=== PATIENT | female | born 1960 | race Caucasian/White ===

== ENCOUNTER → 2020-08-01 | Outpatient (CLI) | payer BC, SELFPAY ==
[2020-08-01 11:35] VITALS: BMI 28.1
== END | disposition home or self-care (01) ==
LOC: LABSPEC 15:31
PROVIDERS: PCP Family Medicine; Referring Provider Physician Assistant; Visit Provider Physician Assistant
DX: R05 Cough (principal); R53.83 Other fatigue; R51.9 Headache, unspecified; R09.81 Nasal congestion; R11.0 Nausea
CPT/HCPCS: 87635; U0003

== ENCOUNTER 2021-03-02 12:14 | Emergency (ER) | payer OTHER, SELFPAY ==
[2020-08-01 11:35] VITALS: BMI 28.1
[2021-03-02 12:15] VITALS: BP 158/96; PULSE 89; RESP 16; TEMP 35.8; O2SAT 98; BMI 26.6
--- NOTE | 2021-03-02 12:28 | RAD_ITS ---
HISTORY: injury. TECHNIQUE: XR Elbow Min 3 Views. Number of images including paperwork: 3. COMPARISON: None. FINDINGS: OSSEOUS STRUCTURES: No acute fracture. Mild osteopenia. JOINT SPACES: Maintained. No dislocation. RAD/Elbow min 3 Views IMPRESSION: No acute fracture or dislocation identified in the right elbow. at 1521 Reported and signed by: Nova Lennon MD Electronically Signed: Nova Lennon MD at 15:20 EDT Tel , Service support ,
--- NOTE | 2021-03-02 12:28 | RAD_ITS ---
HISTORY: injury. TECHNIQUE: XR Foot Min 3 Views. # of images incl. paperwork: 3. COMPARISON: None. FINDINGS: BONES: No acute fracture identified. Generalized osteopenia. JOINTS: No dislocation. Degenerative changes. RAD/Foot min 3 Views IMPRESSION: No acute fracture or dislocation identified in the left foot. at 1333 Reported and signed by: Nova Lennon MD Electronically Signed: Nova Lennon MD at 13:32 EDT Tel , Service support ,
--- NOTE | 2021-03-02 12:29 | EDS_ITS ---
HPI History of Present Illness Chief Complaint: Lower Extremity Injury Informant: patient Narrative Narrative: Patient states that last night she tripped over a raccoon trap and did a somersault hurting her right elbow and left foot. She states the elbow feels bruised and the foot is unable to bear weight. She used crutches to come here. She also notes some abrasions to the right knee. She did not hit her head. No neck or back complaints. [facility] Medical History (Updated 03/02/21 @ 13:[address] Elver Dobbins DO) Eye abnormalities Home Medications prednisolone acetate 1 drp OPHTHALMIC (EYE) 4X/DAY 11/08/13 [History Last Taken Unknown] Allergy/AdvReac Type Severity Reaction Status Date / Time nalidixic acid [From NegGram] Allergy Vomiting Verified 03/02/21 12:15 Social History (Updated 03/02/21 @ 12:[address] Elver Dobbins DO) Smoking Status: Current every day smoker tobacco type: cigarettes substance use type: does not use ROS ROS ED Constitutional Constitutional ED: Denies chills or weight loss Eyes Eyes: Denies change in vision or diplopia ENT ENT ED: Denies ear pain, rhinorrhea or sore throat Cardiovascular Cardiovascular: Denies chest pain, orthopnea, palpitations or racing heartbeat Respiratory/Chest Respiratory/Chest: Denies cough, dyspnea or orthopnea Gastrointestinal Gastrointestinal: Denies abdominal pain, diarrhea, nausea or vomiting Genitourinary Genitourinary ED: Denies dysuria, hematuria or urinary frequency Musculoskeletal Musculoskeletal: Reports other Details: See history of present illness ; Denies arthralgias or myalgias Integumentary Reports Abrasions; Denies abscess or rash Neurologic Neurologic: Denies headache(s) or weakness Psychiatric Psychiatric: Denies anxiety, depression, suicidal ideation or suicidal thoughts Endocrine Endocrinology: Denies polydipsia, polyphagia or polyuria Allergic/Immunologic Allergic/Immunologic ED: Denies mouth swelling, tongue swelling or urticaria EXAM Physical Exam Const Vital Signs: 03/02/21 12:15 Temperature 96.4 F L Temperature Source Temporal Pulse Rate 89 Respiratory Rate 16 Blood Pressure 158/96 H Blood Pressure Mean 116 Pulse Ox 98 Oxygen Delivery Method Room Air Positive well nourished and well developed General Appearance ED: well developed HEENT Reports normocephalic, head/scalp atraumatic and moist mucous membranes Eyes PERRL and EOMs intact bilaterally Neck no lymphadenopathy, supple and no JVD Resp normal respiratory effort and clear to auscultation bilaterally Cardio regular rate, regular rhythm and no murmurs GI normal to inspection, nondistended, normoactive bowel sounds and non-tender Palpation: soft Back/Spine no CVA tenderness and normal ROM Extremity Extremity Narrative: Patient has full range of motion of the left elbow. No tenderness to palpation of the radial head. Left foot shows some mild swelling over the dorsum of the midfoot. General Extremety ED: Negative for edema General Extremity: Negative for edema Neuro oriented x3 and CN's II-XII intact bilaterally Sensorium / Orientation: alert Motor Exam: strength 5/5 throughout Psych mental status grossly normal Mood & Affect: Negative for depressed or tearful Skin no rashes or lesions noted Skin Narrative: Superficial abrasions to the right knee MDM MDM MDM Narrative Medical decision making narrative: My interpretation of the plain films of the right elbow and left foot is no acute fracture. Radiology concurs. Patient will be treated with conservative care at home. Tylenol Motrin and ice. Crutches as needed. Radiography Diagnostic Testing: Radiology Impression Foot X-Ray 03/02/21 12:28 IMPRESSION: No acute fracture or dislocation identified in the left foot. at 1333 Reported and signed by: Nova Lennon MD Electronically Signed: Nova Lennon MD at 13:32 EDT Tel , Service support , Discharge Plan Triage Chief Complaint: Lower Extremity Injury Other Complaint: Upper Extremity Injury ED Provider: Elver Dobbins Dx/Rx/DC Orders Clinical Impression: Contusion of elbow, right, Contusion of foot, left, Abrasion of knee, right Instructions: ED Foot Contusion, ED Contusion, Elbow Prescriptions: No Action prednisolone acetate 1 DROP drops,suspension 1 drp ophthalmic (eye) 4X/DAY RF: 0 Primary Care Provider: Alonso Aponte III Referrals: Alonso Aponte III, MD [Primary Care Provider] - 10-14 Days if not better Disposition Disposition: Home, self care
== END 2021-03-02 15:12 | disposition home or self-care (01) ==
PROVIDERS: Emergency Provider Emergency Medicine; PCP Family Medicine
DX: S50.01XA Contusion of right elbow, initial encounter (principal); S80.211A Abrasion, right knee, initial encounter; S90.31XA Contusion of right foot, initial encounter; S90.32XA Contusion of left foot, initial encounter; W18.09XA Striking against other object with subsequent fall, initial encounter; Y93.9 Activity, unspecified; Y92.9 Unspecified place or not applicable; F17.210 Nicotine dependence, cigarettes, uncomplicated
CPT/HCPCS: 73080; 73630; 99283

== ENCOUNTER 2021-12-17 18:39 | Emergency (ER) | payer BC, SELFPAY ==
[2021-12-17 18:40] VITALS: BP 128/95; PULSE 86; PULSE 91; RESP 23; TEMP 36.7; O2SAT 96; BMI 29.7
--- NOTE | 2021-12-17 18:49 | EKG12_ITS ---
Test Reason : SVT Blood Pressure : / mmHG Vent. Rate : 090 BPM Atrial Rate : 090 BPM P-R Int : 170 ms QRS Dur : 086 ms QT Int : 384 ms P-R-T Axes : 042 018 024 degrees QTc Int : 469 ms Normal sinus rhythm Normal ECG Confirmed by PRO BURTON, TONNY ([id number]), brands editor RODRÍGUEZ ROMO ([id number]) on 12/24/2021 10:25:42 AM Referred By: DOC Confirmed By:TONNY MAST MD
--- NOTE | 2021-12-17 18:51 | ED.VIS.CHEST ---
HPI History of Present Illness Chief Complaint: Chest Pain Narrative Narrative: A 61-year-old female presenting with palpitations. Apparently she was having palpitations for about an hour hour and a half prior to arrival. She called EMS because she was not getting better. EMS stated that they had a rhythm that was SVT. The patient appeared to be unstable and was shocked at 50 J and then 100 J. They did achieve a sinus rhythm. Patient feeling improved currently. She denies any chest pain or shortness of breath. She is never had SVT in the past. She states she does not have any medical problems that she knows. No cardiac history. No history of DVT/PE and no risk factors. [facility] Medical History Eye abnormalities Glaucoma History of palpitations Home Medications prednisolone acetate 1 drp OPHTHALMIC (EYE) 4X/DAY 11/08/13 [History Last Taken Unknown] metoprolol tartrate 25 mg PO DAILY #60 tab 12/17/21 [Rx Last Taken Unknown] Allergy/AdvReac Type Severity Reaction Status Date / Time nalidixic acid [From NegGram] Allergy Vomiting Verified 12/17/21 18:49 Social History Smoking Status: Current every day smoker tobacco type: cigarettes substance use type: does not use ROS ROS ED Review of Systems ROS Unobtainable: Denies due to encephalopathy Constitutional Constitutional ED: Denies fever(s) or subjective Eyes Eyes: Denies none, blurry vision or change in vision ENT ENT ED: Denies rhinorrhea Cardiovascular Cardiovascular: Reports palpitations and racing heartbeat Respiratory/Chest Respiratory/Chest: Denies cough or dyspnea Gastrointestinal Gastrointestinal: Denies abdominal pain, nausea or vomiting Genitourinary Genitourinary ED: Denies dysuria or hematuria Musculoskeletal Musculoskeletal: Denies myalgias Integumentary Denies abscess or rash Neurologic Neurologic: Denies headache(s) or weakness Psychiatric Psychiatric: Denies anxiety or depression EXAM Physical Exam Const Vital Signs: 12/17/21 18:40 12/17/21 18:59 12/17/21 19:50 Temperature 98.1 F Temperature Source Temporal Pulse Rate 86 84 Respiratory Rate 23 H 13 Respiratory Effort Normal Non-Labored Respiratory Pattern Normal Blood Pressure 128/95 H 116/85 H Blood Pressure Mean 106 95 Pulse Ox 96 98 Oxygen Delivery Method Room Air Room Air Positive well nourished General Appearance ED: NAD; Negative for pallor HEENT Reports normocephalic, head/scalp atraumatic and moist mucous membranes Eyes PERRL and EOMs intact bilaterally Neck no lymphadenopathy and supple Chest Wall inspection of chest normal and palpation of chest normal Resp normal respiratory effort and clear to auscultation bilaterally Auscultation: Negative for rales, rhonchi or wheezes Cardio regular rate and regular rhythm GI normal to inspection, nondistended, normoactive bowel sounds and non-distended Auscultation: normoactive bowel sounds Palpation: soft Narrative: Deferred Extremity normal to inspection General Extremety ED: Negative for edema or tenderness General Extremity: Negative for edema Neuro oriented x3 and CN's II-XII intact bilaterally Sensorium / Orientation: alert Motor Exam: strength 5/5 throughout Psych mental status grossly normal Attitude: No agitated Skin no rashes or lesions noted and no wounds General Skin Exam: Negative for jaundice or pallor MDM MDM MDM Narrative Medical decision making narrative: Patient presenting with SVT. EMS does report that she appeared to be unstable and was losing consciousness that it terminated which shocked her and did shock her in the rhythm. She currently feels improved. She denies any sort of chest pain or shortness of breath. She only experienced palpitations. No cardiac history or history of DVT/PE. Blood work was obtained and her CBC and BMP are unremarkable. D-dimer is negative at 0.35. High-sensitivity troponin was elevated at 320. Chest x-ray on my interpretation shows no acute cardiopulmonary process and the radiologist agree. EKG obtained in the ER shows a normal sinus rhythm with a ventricular 90 bpm without sign of ischemic change. I spoke with Dr. Fairbanks regarding elevated troponin and since the patient was not having any chest pain and did get shocked which would possibly elevate her heart enzymes he did not think she needed any further work-up. He recommended putting her on metoprolol tartrate 25 mg p.o. twice daily and following up with her primary care physician. This was discussed with the patient and she was amenable to this. She states she feels very well. Patient counseled to monitor her blood pressure and heart rate. Patient given return precautions. Impression: 1. palpitations 2. Near syncope 3. Status post defibrillation 4. Elevated troponin Lab Data Attestation: I reviewed the patient's lab results. Labs: Laboratory Results - last 24 hr 12/17/21 12/17/21 12/17/21 18:48 18:48 18:48 WBC 9.3 RBC 4.64 Hgb 14.9 Hct 44.2 MCV 95.3 MCH 32.1 H MCHC 33.7 RDW Std Deviation 42.2 RDW Coeff of Elizabeth 12.1 Plt Count 192 MPV 9.6 Immature Gran % (Auto) 0.500 Neut % (Auto) 72.6 H Lymph % (Auto) 15.8 L M[place] % (Auto) 9.8 Eos % (Auto) 1.0 Baso % (Auto) 0.3 Absolute Neuts (auto) 6.7 Absolute Lymphs (auto) 1.46 Nucleated RBC % 0 D-Dimer Quant (PE/DVT) 0.35 Sodium 142 Potassium 3.7 Chloride 115 H Carbon Dioxide 23.0 Anion Gap 4 L BUN 18 Creatinine 0.97 Estim Creat Clear Calc 54.11 Est GFR (MDRD) Af Amer 75 Est GFR (MDRD) Non-Af 62 BUN/Creatinine Ratio 18.5 Glucose 102 Calcium 8.7 Troponin I High Sens 320 H* Radiography Diagnostic Testing: Clinical Impression(s) from Imaging Studies Chest X-Ray 12/17/21 19:02 IMPRESSION: No radiographic evidence of acute cardiopulmonary disease. at 1921 Reported and signed by: Dada Thompson MD Electronically Signed: Dada Thompson MD at 19:19 EDT , Discharge Plan Triage Chief Complaint: Chest Pain ED Provider: Vikram Glass Dx/Rx/DC Orders Instructions: ED Understanding Supraventricular Tachycardia (SVT) Prescriptions: New metoprolol tartrate 25 mg tablet 25 mg PO DAILY Qty: 60 RF: 0 No Action prednisolone acetate 1 DROP drops,suspension 1 drp ophthalmic (eye) 4X/DAY RF: 0 Primary Care Provider: Care Physician,No Primary Referrals: Care Physician,No Primary [Primary Care Provider] - Disposition Disposition: Home, Self Care
--- NOTE | 2021-12-17 19:02 | RAD_ITS ---
EXAM: XR CHEST, 1 VIEW : 1960 CLINICAL INDICATION: chest pain TECHNIQUE: Frontal view of the chest. This report was created using [employer] report generation technology. COMPARISON: 11/08/2013 FINDINGS: LUNGS AND PLEURAL SPACES: Unremarkable. No consolidation or edema. No pneumothorax. No effusion. HEART: Unremarkable. Cardiac silhouette not enlarged. MEDIASTINUM: Central airways and mediastinal contour are unremarkable. BONES/JOINTS: Unremarkable. SOFT TISSUES: Unremarkable. RAD/Chest 1 View (Portable) IMPRESSION: No radiographic evidence of acute cardiopulmonary disease. at 1921 Reported and signed by: Dada Thompson MD Electronically Signed: Dada Thompson MD at 19:19 EDT ,
[2021-12-17 19:17] LABS: Absolute Lymphocyte Count 1.46 X10^3/uL (0.83-4.51); Absolute Neutrophil Count 6.7 X10^3/uL (2.0-7.7); Basophil# 0.03 X10^3/uL; Basophil% 0.3 % (0-1); Eosinophil# 0.09 X10^3/uL; Hematocrit 44.2 % (37-47); Hemoglobin 14.9 g/dL (12.0-15.0); Lymphocyte # 1.46 X10^3/ul (0.83-4.51); Lymphocyte % 15.8 % (19-41); Mean Corp Hgb Conc 33.7 g/dL (32-36); Mean Corpuscular Hgb 32.1 pg (27.0-32.0); Mean Corpuscular Volume 95.3 fL (81-99); Mean Platelet Vol. 9.6 fl (6.2-12.0); Monocyte# 0.91 X10^3/uL; Monocyte% 9.8 % (0-10); NRBC Flagged by Analyzer 0 % (0-5); Neutrophil # 6.71 X10^3/uL (2.7-7.7); Neutrophil % 72.6 % (47-70); Platelet Count 192 K/mm3 (150-450); RBC Distribution Width CV 12.1 % (11.6-14.6); RBC Distribution Width SD 42.2 fl (35.1-43.9); Red Blood Count 4.64 M/mm3 (4.2-5.4); White Blood Count 9.3 K/mm3 (4.4-11.0)
--- NOTE | 2021-12-17 19:26 | CM.ED ---
Social Work Consult: No PCP per chart review. Referral source: Self referral due to above. Met with patient in room. Introduced self and social service coordinator role. Patient agreeable to speak with this social service coordinator. Patient confirms to not have a PCP for the past year my prior PCP retired. Patient open to this social service coordinator providing patient with list of PCP's that are local to patient geographical region. Patient reports plan to get set up with a PCP and time just got away from me. Patient able to identify reasons for why a PCP is important to have established. Patient denies any other concerns in the community. No further services requested or indicated. Emir Flower MSW, ALO
[2021-12-17 19:43] LABS: D-Dimer Quantitative (DVT/PE) 0.35 FEU/ug/m (0.27-0.49)
[2021-12-17 19:50] VITALS: BP 116/85; PULSE 84; RESP 13; O2SAT 98
[2021-12-17 19:54] LABS: Anion Gap 4 (5-15); BUN 18 mg/dL (7-18); BUN/Creat Ratio 18.5 RATIO (10-20); Calcium,Total 8.7 mg/dL (8.5-10.1); Chloride 115 mmol/L (98-107); Creatinine, Serum 0.97 mg/dL (0.55-1.02); EST Glomerular Filtration Rate 62 mL/min (>60); Est Glom Filt Rate - Afr Amer 75 mL/min (>60); Estimated Creatinine Clearance 54.11 ml/min; Glucose 102 mg/dL (74-106); Potassium 3.7 mmol/L (3.5-5.1); Sodium Level 142 mmol/L (136-145); Troponin-I HS (w/2H Reflex) 320 pg/mL (3.0-54.0)
[2021-12-17 20:41] VITALS: BP 131/82; PULSE 79; RESP 24; O2SAT 97
[2021-12-17] MEDS: Metoprolol Tartrate 25 MG Tablet PO (20:55)
[2021-12-17 21:11] LABS: Reflex Troponin-HS? (from REC) Y
== END 2021-12-17 20:57 | disposition home or self-care (01) ==
PROVIDERS: Emergency Provider Student in an Organized Health Care Education/Training Program; Visit Provider Student in an Organized Health Care Education/Training Program
DX: R00.2 Palpitations (principal); R55 Syncope and collapse; Z95.810 Presence of automatic (implantable) cardiac defibrillator; R79.89 Other specified abnormal findings of blood chemistry; F17.210 Nicotine dependence, cigarettes, uncomplicated
CPT/HCPCS: 71045; 80048; 84484; 85025; 85379; 93005; 99285; A4216

== ENCOUNTER 2021-12-18 16:21 | Outpatient (CLI) | payer BC, SELFPAY ==
[2021-12-18 17:13] LABS: Absolute Lymphocyte Count 1.74 X10^3/uL (0.83-4.51); Absolute Neutrophil Count 4.1 X10^3/uL (2.0-7.7); Basophil# 0.02 X10^3/uL; Basophil% 0.3 % (0-1); Eosinophil# 0.08 X10^3/uL; Eosinophils% 1.2 % (0-5); Hematocrit 41.2 % (37-47); Lymphocyte # 1.74 X10^3/ul (0.83-4.51); Lymphocyte % 26.7 % (19-41); Mean Corpuscular Hgb 32.5 pg (27.0-32.0); Mean Corpuscular Volume 95.6 fL (81-99); Mean Platelet Vol. 10.2 fl (6.2-12.0); Monocyte# 0.53 X10^3/uL; Monocyte% 8.1 % (0-10); NRBC Flagged by Analyzer 0 % (0-5); Neutrophil # 4.12 X10^3/uL (2.7-7.7); Neutrophil % 63.2 % (47-70); Platelet Count 203 K/mm3 (150-450); RBC Distribution Width CV 12.3 % (11.6-14.6); RBC Distribution Width SD 43.6 fl (35.1-43.9); Red Blood Count 4.31 M/mm3 (4.2-5.4); White Blood Count 6.5 K/mm3 (4.4-11.0)
[2021-12-18 18:20] LABS: ALB/GLOB Ratio 1.3 RATIO (0.9-2.4); AST(SGOT) 37 U/L (15-37); Alanine Aminotransfer ALT/SGPT 35 U/L (13-56); Albumin, Serum 3.7 g/dL (3.2-5.0); Alkaline Phosphatase 110 U/L (45-117); Anion Gap 4 (5-15); BUN 15 mg/dL (7-18); BUN/Creat Ratio 17.7 RATIO (10-20); Calcium,Total 8.5 mg/dL (8.5-10.1); Chloride 114 mmol/L (98-107); Creatinine, Serum 0.85 mg/dL (0.55-1.02); EST Glomerular Filtration Rate 72 mL/min (>60); Est Glom Filt Rate - Afr Amer 87 mL/min (>60); Globulin 2.8 g/dL (2.2-4.2); Glucose 95 mg/dL (74-106); Potassium 3.9 mmol/L (3.5-5.1); Protein, Total 6.5 g/dL (6.4-8.2); Sodium Level 144 mmol/L (136-145); Thyroid Stim Hormone (TSH) 0.72 uIU/mL (0.358-3.74)
[2021-12-19 10:06] LABS: Hepatitis C Antibody Non-Reactive (Nonreactive)
== END 2021-12-18 23:59 | disposition home or self-care (01) ==
LOC: POLAB3 16:22
PROVIDERS: PCP Family Medicine Geriatric Medicine; Visit Provider Family Medicine Geriatric Medicine
DX: E55.9 Vitamin D deficiency, unspecified (principal); R53.83 Other fatigue; Z13.89 Encounter for screening for other disorder
CPT/HCPCS: 36415; 80053; 82306; 84443; 85025; 86803

== ENCOUNTER → 2022-01-13 | Outpatient (CLI) | payer BC, SELFPAY ==
--- NOTE | 2022-01-13 07:24 | CT_ITS ---
STUDY: CT CHEST WITHOUT CONTRAST- LOW DOSE SCREENING PROTOCOL REASON FOR EXAM: Female, 61 years old. pack per year history. No current symptoms of lung cancer or pulmonary infection. Shared decision-making with referring PCP documented in patient''s record. RADIATION DOSAGE (If Supplied By Facility): CTDIvol = ( 3.02 ) mGy, DLP = ( 97.04 ) mGycm TECHNIQUE: Low dose screening CT examination performed from the base of the neck to the upper abdomen. Sagittal and coronal reformatted images performed. Sagittal and coronal MIP images provided. The measurements provided are average, rounded measurements per ACR guidelines. COMPARISON: None. FINDINGS: Linear scar in the periphery of the right lung adjacent to the major fissure. No noncalcified nodule or mass. There is no demonstrated pleural abnormality. Normal heart and pericardium. There are calcifications of the coronary arteries. Normal mediastinum. Normal hilar regions. Normal unenhanced pulmonary arteries. Normal aorta arch and descending thoracic aorta. Normal osseous structures. There is no demonstrated abnormality of the visualized upper abdomen. CT/Low Dose CT Lung Screening IMPRESSION: 1. No significant indeterminate incidental findings requiring additional imaging. 2. Incidental findings include right upper lobe scar.. ASSESSMENT CATEGORY: LungRADS 1 - Negative. Continue annual screening with LDCT in 12 months, per established ACR guidelines. Electronically Signed: Juan Jose Thomas MD at 10:41 EDT ,
== END | disposition home or self-care (01) ==
LOC: CT 07:23
PROVIDERS: PCP Family Medicine Geriatric Medicine; Referring Provider Family Medicine Geriatric Medicine; Visit Provider Family Medicine Geriatric Medicine
DX: F17.200 Nicotine dependence, unspecified, uncomplicated (principal)
CPT/HCPCS: 71271

== ENCOUNTER → 2022-03-23 | Outpatient (CLI) | payer BC, SELFPAY ==
--- NOTE | 2022-03-23 07:48 | ECHOD_ITS ---
Reason For Study: ARRYTHMIA Procedure This was a 2D Doppler, Color Flow transthoracic echocardiogram. Exam performed in department. Left Ventricle Normal LV size. Left ventricular systolic function is normal. The estimated ejection fraction is 65 %. Stage 1 diastolic dysfunction. No regional wall motion abnormalities noted. Right Ventricle Normal RV size. Normal systolic function. Atria Normal left atrium. Normal right atrium. Mitral Valve Normal mitral valve. Tricuspid Valve Normal tricuspid valve. Mild tricuspid valve insufficiency. Aortic Valve Normal aortic valve. Trisinus/trileaflet aortic valve. Pulmonic Valve Normal pulmonic valve. Great Vessels Normal aortic root. The pulmonary artery is normal size. Normal inferior vena cava. Pericardium/Pleural No pericardial effusion. MMode/2D Measurements & Calculations LVIDd: 4.6 cm IVSd: 0.94 cm Ao root diam: 3.4 cm LVIDs: 3.0 cm LVPWd: 1.0 cm RVDd: 3.1 cm FS: 34.7 % LAV(MOD-bp): 40.8 ml LVAd ap4: 24.8 cm2 LVAd ap2: 27.2 cm2 LAV(MOD-bp) Indexed: 22.4 ml/m2 LVLd ap4: 7.9 cm LVLd ap2: 7.2 cm LAV(MOD-sp2): 38.6 ml EDV(MOD-sp4): 64.7 ml EDV(MOD-sp2): 84.1 ml LAV(MOD-sp4): 43.1 ml EDV(sp4-el): 65.8 ml EDV(sp2-el): 87.4 ml LVAs ap4: 15.9 cm2 LVAs ap2: 16.4 cm2 LVLs ap4: 6.9 cm LVLs ap2: 6.2 cm ESV(MOD-sp4): 30.4 ml ESV(MOD-sp2): 34.8 ml ESV(sp4-el): 31.2 ml ESV(sp2-el): 37.0 ml EF(MOD-sp4): 53.0 % EF(MOD-sp2): 58.7 % EF(sp4-el): 52.5 % SV(MOD-sp4): 34.3 ml SV(MOD-sp2): 49.3 ml SV(sp4-el): 34.5 ml LA dimension(2D): 3.4 cm LA A4 area: 16.4 cm2 RA A4 area: 11.4 cm2 Doppler Measurements & Calculations MV E max manuel: 62.0 cm/sec Med Peak E' Manuel: 5.3 cm/sec Ao V2 max: 113.2 cm/sec MV A max manuel: 86.8 cm/sec E/E' med: 11.7 Ao max P.1 mmHg MV E/A: 0.71 LV V1 max: 81.0 cm/sec PA V2 max: 61.9 cm/sec TR max manuel: 199.6 cm/sec LV V1 max P.6 mmHg TR max P.9 mmHg ECHO/Echo Complete Interpretation Summary Normal LV size. Left ventricular systolic function is normal. The estimated ejection fraction is 65 %. Stage 1 diastolic dysfunction. Mild tricuspid valve insufficiency. Ordering Physician: Ashok Fairbanks Referring Physician: Ashok Fairbanks Performed By: Michelle Linda RCS
== END | disposition home or self-care (01) ==
PROVIDERS: PCP Family Medicine Geriatric Medicine; Referring Provider Internal Medicine Cardiovascular Disease; Visit Provider Internal Medicine Cardiovascular Disease
DX: I47.1 Supraventricular tachycardia (principal)
CPT/HCPCS: 93306

== ENCOUNTER 2022-12-12 10:19 | Emergency (ER) | payer BC, SELFPAY ==
[2022-12-12] VITALS (8 sets, daily range): BP systolic 69–131; BP diastolic 51–81; PULSE 94–203; RESP 17–19; TEMP 36.6; O2SAT 87–100; BMI 30.2
--- NOTE | 2022-12-12 10:30 | EKG12_ITS ---
Test Reason : REPEAT-SVT Blood Pressure : / mmHG Vent. Rate : 101 BPM Atrial Rate : 101 BPM P-R Int : 162 ms QRS Dur : 084 ms QT Int : 318 ms P-R-T Axes : 052 032 043 degrees QTc Int : 412 ms Sinus tachycardia Nonspecific ST abnormality Abnormal ECG Confirmed by CASSIE BURTON, RHETT ([id number]), senior editor MARY JANE WASHINGTON ([id number]) on 12/15/2022 7:32:57 AM Referred By: DONITA Confirmed By:DELANO MATTHEWS MD
[2022-12-12] MEDS: Adenosine 6 MG/2 ML Syringe IV (10:32)
--- NOTE | 2022-12-12 10:35 | EKG12_ITS ---
Test Reason : SVT Blood Pressure : / mmHG Vent. Rate : 199 BPM Atrial Rate : 000 BPM P-R Int : 000 ms QRS Dur : 078 ms QT Int : 224 ms P-R-T Axes : 000 038 196 degrees QTc Int : 407 ms Supraventricular tachycardia Abnormal ECG Confirmed by CASSIE BURTON, RHETT ([id number]), medical transcription editor MARY JANE WASHINGTON ([id number]) on 12/15/2022 7:33:18 AM Referred By: DONITA Confirmed By:DELANO MATTHEWS MD
--- NOTE | 2022-12-12 10:38 | EX.ED.DYSGE1 ---
HPI History of Present Illness Chief Complaint: Chest Pain Detail of Chief Complaint: Chest discomfort and racing heart Informant: patient Narrative Narrative: Patient presents the emergency department with sudden onset of chest discomfort that started this morning. Patient felt like she was in a pass out. She feels like her heart is racing. He had a similar episode about a year ago and was diagnosed with SVT and was on diltiazem however she discontinued it about 4 or 5 months ago because it made her feel worse. Patient denies recent illness. She has history of hypertension. Patient denies recent travel or surgery. [facility] Medical History Alcohol use Depression Eye abnormalities Glaucoma Hyperlipidemia Insomnia SVT (supraventricular tachycardia) Tobacco abuse Home Medications cholecalciferol (vitamin D3) 25 mcg (1,000 unit) capsule 25 mcg PO DAILY 02/13/22 [History Last Taken Unknown] diltiazem HCl 180 mg capsule,24 hr,extended release 180 mg PO DAILY #90 caps 02/13/22 [Rx Last Taken Unknown] prednisolone acetate 1 % eye drops,suspension (Pred Forte) 1 drp ophthalmic (eye) DAILY 02/13/22 [History Last Taken Unknown] timolol 0.5 % eye drops 1 drp ophthalmic (eye) DAILY 02/13/22 [History Last Taken Unknown] metoprolol succinate 25 mg tablet,extended release 24 hr 25 mg PO BID #60 tabs 12/12/22 [Rx Last Taken Unknown] Allergy/AdvReac Type Severity Reaction Status Date / Time nalidixic acid [From NegGram] Allergy Vomiting Verified 12/12/22 10:22 Family History Father Cancer pancreas Heart disease AFIB Mother Hypertension Heart disease Valvular heart disease Surgical History History of cardioversion (12/17/21) History of cornea transplant History of eye surgery Social History Smoking Status: Current every day smoker tobacco type: cigarettes Tobacco: How many years used: 46 alcohol intake: current alcohol intake frequency: 0-2 drinks per day Alcohol type: beer, wine and hard liquor substance use type: does not use ROS ROS ED Review of Systems ROS Unobtainable: other Constitutional Constitutional ED: Reports lethargy; Denies chills, fever(s), sweats or weight loss Eyes Eyes: Denies blurry vision, change in vision or diplopia ENT ENT ED: Denies rhinorrhea or sore throat Cardiovascular Cardiovascular: Reports chest pain and racing heartbeat; Denies orthopnea Respiratory/Chest Respiratory/Chest: Reports dyspnea; Denies cough, dyspnea on exertion, orthopnea or sputum Gastrointestinal Gastrointestinal: Denies abdominal pain, diarrhea, nausea or vomiting Genitourinary Genitourinary ED: Denies dysuria, hematuria or urinary frequency Musculoskeletal Musculoskeletal: Denies arthralgias, back pain, myalgias or neck pain Integumentary Denies abscess, Abrasions or rash Neurologic Neurologic: Denies headache(s) or weakness Psychiatric Psychiatric: Denies anxiety, depression or suicidal thoughts Endocrine Endocrinology: Denies polydipsia, polyphagia or polyuria Hematologic/Lymphatic Hematologic/Lymphatic: Denies easy bleeding, easy bruising or lymphadenopathy Allergic/Immunologic Allergic/Immunologic ED: Denies mouth swelling, tongue swelling or urticaria EXAM Physical Exam Const Vital Signs: 12/12/22 10:22 12/12/22 10:27 12/12/22 10:28 Temperature 98 F Temperature Source Temporal Pulse Rate 199 H 203 H Respiratory Rate 19 H Respiratory Effort Non-Labored Short of Breath Blood Pressure 82/51 L Blood Pressure Mean 61 Pulse Ox Oxygen Delivery Method Oxygen Flow Rate (L/min) 12/12/22 10:29 12/12/22 10:30 12/12/22 10:33 Temperature Temperature Source Pulse Rate 197 H 104 H Respiratory Rate 18 Respiratory Effort Blood Pressure 69/56 L 116/76 Blood Pressure Mean 60 89 Pulse Ox 87 100 Oxygen Delivery Method Room Air Nasal Cannula Oxygen Flow Rate (L/min) 2 12/12/22 11:25 Temperature Temperature Source Pulse Rate 94 Respiratory Rate 17 Respiratory Effort Blood Pressure 131/80 H Blood Pressure Mean 97 Pulse Ox 100 Oxygen Delivery Method Room Air Oxygen Flow Rate (L/min) Positive well nourished and well developed General Appearance ED: well developed and NAD HEENT Reports TM's clear and moist mucous membranes normocephalic and atraumatic; Negative for trauma or tenderness Tympanic Membrane ED: Yes TM's clear Eyes PERRL and EOMs intact bilaterally General Eye ED: Negative for pale conjunctiva or scleral icterus Neck no lymphadenopathy, supple and no JVD General: Negative for tenderness Chest Wall inspection of chest normal and palpation of chest normal Chest: Negative for tenderness Resp normal respiratory effort and clear to auscultation bilaterally Effort and Inspection: Negative for respiratory distress or pain with movement Auscultation: Negative for rhonchi, wheezes or diminished lung sounds Cardio regular rhythm, S1 normal heart sound, S2 normal heart sound and no murmurs Rate: tachycardic Peripheral Pulses: pulses 2+ throughout GI normal to inspection, nondistended, normoactive bowel sounds, soft to palpation, non-tender, non-distended and no masses Back/Spine no CVA tenderness and no thoracic nor lumbar tenderness Extremity normal to inspection General Extremety ED: Negative for edema General Extremity: Negative for edema Neuro oriented x3, CN's II-XII intact bilaterally, no sensory deficits noted and gait normal Sensorium / Orientation: awake, alert, oriented to person, oriented to place and oriented to time Motor Exam: strength 5/5 throughout and strength abnormal Psych mental status grossly normal Skin no rashes or lesions noted and no wounds MDM MDM MDM Narrative Medical decision making narrative: Patient presented to the emergency department with chest discomfort and tachycardia. On monitor noted to be in SVT with a rate around 200. EKG initially obtained showed SVT with a rate of 199 bpm. IV line had already been established by nursing staff. She was given adenosine 6 mg IV and she converted to a sinus rhythm. Blood pressure improved. She felt significantly better. Patient will have basic labs obtained. Patient had basic lab work that essentially unremarkable. She did have a elevated WBC count of 12.7 which I suspect likely reactive from the tachycardia today. Her hemoglobin was 18.1 and patient is a smoker. Chemistries unremarkable. Troponin was normal at 13. Glucose was 211. I discussed case with metal wire coating operator on-call Dr. Ascencio who recommended started patient on beta-regine metoprolol 25 twice daily and follow-up with Dr. Ashok Fairbanks. Lab Data Attestation: I reviewed the patient's lab results. Labs: Laboratory Results - last 24 hr 12/12/22 12/12/22 10:30 10:30 WBC 12.7 H RBC 5.60 H Hgb 18.1 H* Hct 53.4 H MCV 95.4 MCH 32.3 H MCHC 33.9 RDW Std Deviation 46.9 H RDW Coeff of Elizabeth 13.2 Plt Count 307 MPV 9.5 Immature Gran % (Auto) 0.500 Neut % (Auto) 64.8 Lymph % (Auto) 25.9 [place] % (Auto) 7.2 Eos % (Auto) 1.1 Baso % (Auto) 0.5 Absolute Neuts (auto) 8.3 H Absolute Lymphs (auto) 3.30 Nucleated RBC % 0 Sodium 141 Potassium 4.2 Chloride 109 H Carbon Dioxide 24.0 Anion Gap 8 BUN 13 Creatinine 1.16 H Estim Creat Clear Calc 44.67 Est GFR (MDRD) Af Amer 61 Est GFR (MDRD) Non-Af 50 L BUN/Creatinine Ratio 11.2 Glucose 211 H Calcium 9.6 Magnesium 2.1 Troponin I High Sens 13 EKG Initial EKG: Attestation: I personally reviewed and interpreted this EKG as follows: Comments: Initial EKG showed SVT narrow complex with rate of [address] changes. After conversion with adenosine-EKG shows a sinus rhythm with a rate of [address] changes. Discharge Plan Triage Chief Complaint: Chest Pain ED Provider: Tameka Walker Dx/Rx/DC Orders Clinical Impression: SVT (supraventricular tachycardia) Instructions: ED Understanding Supraventricular Tachycardia (SVT) Prescriptions: New metoprolol succinate 25 mg tablet extended release 24 hr 25 mg PO BID Qty: 60 0RF No Action cholecalciferol (vitamin D3) 25 mcg (1,000 unit) capsule 25 mcg PO DAILY prednisolone acetate [Pred Forte] 1 % drops,suspension 1 drp ophthalmic (eye) DAILY timolol 0.5 % drops 1 drp ophthalmic (eye) DAILY diltiazem HCl 180 mg capsule,extended release 24 hr 180 mg PO DAILY Qty: 90 3RF Primary Care Provider: Colin Gipson Chi Referrals: Ashok Fairbanks MD [Med Staff - Active Staff] - 3-5 Days Colin Gipson Chi, MD [Primary Care Provider] - Disposition Disposition: Home, Self Care
[2022-12-12 10:49] LABS: Absolute Neutrophil Count 8.3 X10^3/uL (2.0-7.7); Basophil# 0.06 X10^3/uL; Basophil% 0.5 % (0-1); Eosinophil# 0.14 X10^3/uL; Eosinophils% 1.1 % (0-5); Hematocrit 53.4 % (37-47); Lymphocyte % 25.9 % (19-41); Mean Corp Hgb Conc 33.9 g/dL (32-36); Mean Corpuscular Hgb 32.3 pg (27.0-32.0); Mean Corpuscular Volume 95.4 fL (81-99); Mean Platelet Vol. 9.5 fl (6.2-12.0); Monocyte# 0.91 X10^3/uL; Monocyte% 7.2 % (0-10); NRBC Flagged by Analyzer 0 % (0-5); Neutrophil # 8.25 X10^3/uL (2.7-7.7); Neutrophil % 64.8 % (47-70); Platelet Count 307 K/mm3 (150-450); RBC Distribution Width CV 13.2 % (11.6-14.6); RBC Distribution Width SD 46.9 fl (35.1-43.9); White Blood Count 12.7 K/mm3 (4.4-11.0)
[2022-12-12] MEDS: 0.9% Normal Saline 1,000 ML 150 ML IV (10:53)
[2022-12-12 11:02] LABS: Anion Gap 8 (5-15); BUN 13 mg/dL (7-18); BUN/Creat Ratio 11.2 RATIO (10-20); Calcium,Total 9.6 mg/dL (8.5-10.1); Chloride 109 mmol/L (98-107); Creatinine, Serum 1.16 mg/dL (0.55-1.02); EST Glomerular Filtration Rate 50 mL/min (>60); Est Glom Filt Rate - Afr Amer 61 mL/min (>60); Estimated Creatinine Clearance 44.67 ml/min; Glucose 211 mg/dL (74-106); Magnesium 2.1 mg/dL (1.6-2.6); Potassium 4.2 mmol/L (3.5-5.1); Sodium Level 141 mmol/L (136-145); Troponin-I HS 13 pg/mL (3.0-54.0)
[2022-12-12 11:26] LABS: Hemoglobin 18.1 g/dL (12.0-15.0)
[2022-12-12] MEDS: Metoprolol(XL)Succ 25 MG Tablet PO (12:36)
[2022-12-14 13:08] LABS: Pathologist Review Reviewed
== END 2022-12-12 12:43 | disposition home or self-care (01) ==
PROVIDERS: Emergency Provider Emergency Medicine; PCP Family Medicine Geriatric Medicine; Visit Provider Emergency Medicine
DX: I47.1 Supraventricular tachycardia (principal); I10 Essential (primary) hypertension; F17.210 Nicotine dependence, cigarettes, uncomplicated; Z79.899 Other long term (current) drug therapy; Z79.52 Long term (current) use of systemic steroids
CPT/HCPCS: 80048; 83735; 84484; 85025; 93005; 96361; 96374; 99284; J7030; A4216; J0153

== ENCOUNTER → 2022-12-28 | Outpatient (CLI) | payer BC, SELFPAY ==
[2022-12-28 10:49] LABS: Absolute Lymphocyte Count 1.83 X10^3/uL (0.83-4.51); Absolute Neutrophil Count 3.1 X10^3/uL (2.0-7.7); Basophil# 0.04 X10^3/uL; Basophil% 0.7 % (0-1); Eosinophil# 0.09 X10^3/uL; Eosinophils% 1.6 % (0-5); Hematocrit 47.9 % (37-47); Hemoglobin 16.1 g/dL (12.0-15.0); Lymphocyte # 1.83 X10^3/ul (0.83-4.51); Lymphocyte % 32.9 % (19-41); Mean Corp Hgb Conc 33.6 g/dL (32-36); Mean Corpuscular Hgb 32.5 pg (27.0-32.0); Mean Corpuscular Volume 96.8 fL (81-99); Mean Platelet Vol. 9.4 fl (6.2-12.0); Monocyte# 0.52 X10^3/uL; Monocyte% 9.4 % (0-10); NRBC Flagged by Analyzer 0 % (0-5); Neutrophil # 3.06 X10^3/uL (2.7-7.7); Platelet Count 222 K/mm3 (150-450); RBC Distribution Width CV 12.9 % (11.6-14.6); RBC Distribution Width SD 46.4 fl (35.1-43.9); Red Blood Count 4.95 M/mm3 (4.2-5.4); White Blood Count 5.6 K/mm3 (4.4-11.0)
[2022-12-28 11:17] LABS: Anion Gap -2 (5-15); BUN 12 mg/dL (7-18); BUN/Creat Ratio 17.3 RATIO (10-20); Calcium,Total 9.1 mg/dL (8.5-10.1); Chloride 113 mmol/L (98-107); Creatinine, Serum 0.69 mg/dL (0.55-1.02); EST Glomerular Filtration Rate 91 mL/min (>60); Est Glom Filt Rate - Afr Amer 110 mL/min (>60); Glucose 101 mg/dL (74-106); Potassium 4.3 mmol/L (3.5-5.1); Sodium Level 139 mmol/L (136-145)
== END | disposition home or self-care (01) ==
PROVIDERS: PCP Family Medicine Geriatric Medicine; Referring Provider Physician Assistant Medical; Visit Provider Physician Assistant Medical
DX: I47.1 Supraventricular tachycardia (principal)
CPT/HCPCS: 36415; 80048; 85025

== ENCOUNTER 2023-01-14 10:10 | Day surgery (SDC) | payer BC, SELFPAY ==
[2023-01-13 07:07] VITALS: BMI 29.9
--- NOTE | 2023-01-14 14:00 | ELECTROSTU_ITS ---
Electrophysiology Report Electrophysiology Report The patient has recurrent narrow complex tachycardia terminated by adenosine and is here for electrophysiologic testing. After informed consent the patient was brought to the catheterization laboratory at [facility] and the right and left groin were prepped and draped in usual sterile manner. 1% like lidocaine was used for local anesthetic. Intermittent boluses of Versed and fentanyl were used for sedation and analgesia. After intravenous access 5000 units of heparin was administered. Using the Seldinger technique the right femoral vein was cannulated with a 12 English Tri-Port. It was flushed. The diagnostic catheters were placed. A quadripolar catheter was placed in the high right atrium, a deflectable catheter was placed in the hiss position, and a quadripolar catheter was positioned in the right ventricle. Programmed stimulation was performed both in the baseline state as well as during Isuprel infusion. Baseline parameters are a sinus cycle length of 740 AH of 90 HV of 40 maximum SNRT of 990 corrected sinus node recovery time is 250 AV block cycle length is 350 VA block cycle length is 280 there is decremental retrograde conduction the AV node effective refractory period is less than [address] of 600 there is inducible typical AV conor reentrant tachycardia with a cycle length of 370 but it was self terminating and brief. There was dual AV node physiology and an AV conor jump and echo beat with A1 A2 of 600, 310. During Isuprel fusion at 3 mcg/min the sinus cycle length was 480 the AH was 6 0 the HV was 4 0 the AV block cycle length was 280 the VA block cycle length was less than 280 there is decremental retrograde conduction. With A1 A2 A3 there is reproducible induction of typical AV conor reentrant tachycardia during the tachycardia the VA interval at the hiss was 40 there was a VA V response during ventricular entrainment. The cycle length of the tachycardia was 320 ms.. Detailed mapping and pacing was performed in the coronary sinus and in the hiss bundle region. Mapping was completed to identify the slow pathway region and radiofrequency ablation was delivered using the standard using standard baseline settings of 50 W 52 degrees 60 seconds in the temperature control mode. Multiple radiofrequency lesions were applied at the inferior and midportion of the anterior lip of the coronary sinus with occasional junctional beats. There was no VA block during application of RF energy. Post ablation in sinus rhythm the baseline state sinus cycle length was 610 AH was 7 0 HV was 4 0 AV block cycle length was 320 the AV node effective refractory period was less than [address] of 550. Isuprel was then infused at 3 mcg/min with a sinus cycle length of 490 the AV node ERP was less than [id number] the AV block cycle length was 280. Using A1 A2 A3 stimulation there was confirmation of no presence of slow pathway function there was no inducible tachycardia there was no dual AV node physiology there was no AV conor echo beats. In summary patient underwent successful slow pathway ablation for management of typical AV conor reentrant tachycardia. There were no complications. The patient can be discharged home
[2023-01-14 15:27] VITALS: BP 151/92; PULSE 76; RESP 15; TEMP 36.6; O2SAT 98
[2023-01-14 15:37] VITALS: BP 144/91; PULSE 81; RESP 15; O2SAT 97
[2023-01-14 15:51] VITALS: BP 151/87; PULSE 77; RESP 16; O2SAT 99
[2023-01-14 16:06] VITALS: BP 148/86; PULSE 71; RESP 15; O2SAT 98
[2023-01-14 17:00] VITALS: BP 155/95; PULSE 88; RESP 16; O2SAT 98
--- NOTE | 2023-01-14 17:32 | NURSING ---
This RN took out patients IV in left arm. Post site intact.
[2023-01-14 17:48] VITALS: BP 155/95; PULSE 88; RESP 16; TEMP 36.6; O2SAT 98
== END 2023-01-14 17:30 | disposition home or self-care (01) ==
LOC: CLSP 10:19 → PCU 17:12
PROVIDERS: PCP Family Medicine Geriatric Medicine; Referring Provider Internal Medicine Cardiovascular Disease; Visit Provider Internal Medicine Cardiovascular Disease
DX: I47.1 Supraventricular tachycardia (principal); I10 Essential (primary) hypertension; F17.210 Nicotine dependence, cigarettes, uncomplicated; E78.5 Hyperlipidemia, unspecified; Z82.49 Family history of ischemic heart disease and other diseases of the circulatory system
CPT/HCPCS: 93609; 93623; 93653; 99152; 99153; C1730; C1894; J7040

== ENCOUNTER → 2023-01-20 | Outpatient (CLI) | payer BC, SELFPAY ==
[2023-01-20 12:11] LABS: Absolute Lymphocyte Count 1.39 X10^3/uL (0.83-4.51); Absolute Neutrophil Count 3.3 X10^3/uL (2.0-7.7); Basophil# 0.04 X10^3/uL; Basophil% 0.7 % (0-1); Eosinophil# 0.12 X10^3/uL; Eosinophils% 2.2 % (0-5); Hematocrit 45.4 % (37-47); Hemoglobin 15.3 g/dL (12.0-15.0); Lymphocyte # 1.39 X10^3/ul (0.83-4.51); Lymphocyte % 25.8 % (19-41); Mean Corp Hgb Conc 33.7 g/dL (32-36); Mean Corpuscular Hgb 32.6 pg (27.0-32.0); Mean Corpuscular Volume 96.6 fL (81-99); Mean Platelet Vol. 10.1 fl (6.2-12.0); Monocyte# 0.53 X10^3/uL; Monocyte% 9.8 % (0-10); NRBC Flagged by Analyzer 0 % (0-5); Neutrophil # 3.28 X10^3/uL (2.7-7.7); Neutrophil % 60.9 % (47-70); Platelet Count 208 K/mm3 (150-450); RBC Distribution Width CV 12.6 % (11.6-14.6); White Blood Count 5.4 K/mm3 (4.4-11.0)
[2023-01-20 12:16] LABS: ALB/GLOB Ratio 1.2 RATIO (0.9-2.4); AST(SGOT) 12 U/L (15-37); Alanine Aminotransfer ALT/SGPT 21 U/L (13-56); Albumin, Serum 3.6 g/dL (3.2-5.0); Alkaline Phosphatase 98 U/L (45-117); Anion Gap 5 (5-15); BUN 14 mg/dL (7-18); BUN/Creat Ratio 22.2 RATIO (10-20); Calcium,Total 8.7 mg/dL (8.5-10.1); Chloride 110 mmol/L (98-107); Creatinine, Serum 0.63 mg/dL (0.55-1.02); EST Glomerular Filtration Rate 101 mL/min (>60); Est Glom Filt Rate - Afr Amer 122 mL/min (>60); Glucose 88 mg/dL (74-106); Potassium 4.1 mmol/L (3.5-5.1); Protein, Total 6.6 g/dL (6.4-8.2); Sodium Level 141 mmol/L (136-145)
== END | disposition home or self-care (01) ==
LOC: POLAB3 09:25
PROVIDERS: PCP Family Medicine Geriatric Medicine; Visit Provider Family Medicine Geriatric Medicine
DX: R53.83 Other fatigue (principal)
CPT/HCPCS: 36415; 80053; 84443; 85025

== ENCOUNTER → 2023-01-26 | Outpatient (CLI) | payer BC, SELFPAY ==
--- NOTE | 2023-01-26 12:07 | BI_ITS ---
MAMMOGRAPHY - BILATERAL SCREENING REASON FOR EXAM: Female, 62 years old. Routine annual screening examination. PERTINENT HISTORY: Non-contributory. Remote right breast aspiration. TECHNIQUE: Digital bilateral breast samina (3D mammographic acquisition) in the CC and MLO projections. 2-D mediolateral oblique (MLO) and craniocaudad (CC) views of both breasts were obtained. CAD: Full Field Digital Mammography with Computer Added Detection was performed. COMPARISON: Comparison is made with prior EXAMINATION dated February 24, 2019. FINDINGS: Breast Composition: There are scattered areas of fibroglandular density. There are no dominant masses or suspicious calcifications. The previously seen nodular density in the upper central portion of the left breast as clear. No other significant abnormalities are identified. BI/SCRN MAMM (CAD)W/SAMINA BILAT IMPRESSION: Stable bilateral screening mammogram. Yearly follow-up mammogram recommended. (A) ASSESSMENT CATEGORY: BIRADS Category 2: Benign. A letter regarding these results will be sent to the patient by the facility within 30 days. Approximately 10% of breast cancers are not detected by mammography. A normal mammogram should not delay biopsy of a clinically suspicious abnormality. [id number] Electronically Signed: Cam Gross MD at 13:53 EDT ,
== END | disposition home or self-care (01) ==
LOC: OPBI 12:06
PROVIDERS: PCP Family Medicine Geriatric Medicine; Referring Provider Family Medicine Geriatric Medicine; Visit Provider Family Medicine Geriatric Medicine
DX: Z12.31 Encounter for screening mammogram for malignant neoplasm of breast (principal)
CPT/HCPCS: 77063; 77067

== ENCOUNTER → 2024-11-14 | Outpatient (CLI) | payer MEDICARE, SELFPAY ==
[2024-11-14 14:18] LABS: Cholesterol 171 mg/dL (<=200); High Density Lipoprotein 45 mg/dL; Low Density Lipoprotein Calc. 102 mg/dL; Triglycerides 117 mg/dL; Very Low Density Lipoprotein 23 mg/dL (5-40); cholesterol:hdl ratio screen 3.77
[2024-11-14 14:31] LABS: ALB/GLOB Ratio 1.5 RATIO (0.9-2.4); AST(SGOT) 16 U/L (<=31); Alanine Aminotransfer ALT/SGPT < 5 U/L (<=34); Albumin, Serum 4.2 g/dL (3.4-4.8); Alkaline Phosphatase 116 U/L (35-104); Anion Gap 11 (5-15); BUN 12 mg/dL (4-19); BUN/Creat Ratio 18.5 RATIO (10-20); Calcium,Total 9.5 mg/dL (7.6-11.0); Carbon Dioxide 23.3 mmol/L (21.0-32.0); Chloride 104 mmol/L (98-108); Creatinine, Serum 0.67 mg/dL (0.70-1.20); EST Glomerular Filtration Rate 97 (>60); Globulin 2.8 g/dL (2.2-4.2); Glucose 110 mg/dL (70-99); Potassium 4.5 mmol/L (3.3-5.1); Sodium Level 139 mmol/L (133-145); Total Bilirubin 0.41 mg/dL (0.00-1.30)
== END | disposition home or self-care (01) ==
LOC: VSLAB 09:07
PROVIDERS: PCP Nurse Practitioner Family; Visit Provider Nurse Practitioner Family
DX: I10 Essential (primary) hypertension (principal)
CPT/HCPCS: 36415; 80053; 80061

== ENCOUNTER → 2024-11-20 | Outpatient (CLI) | payer MEDICARE, SELFPAY ==
--- NOTE | 2024-11-20 13:59 | BI_ITS ---
PROCEDURE: SCRN MAMM (CAD)W/SAMINA BILAT REASON FOR EXAM: F, Age 64 y/o, annual follow-up. No known family history. TECHNIQUE: Bilateral screening digital breast tomosynthesis with 2D and 3D images. Computer aided detection. COMPARISON: Prior exam(s) dating back to January 26, 2023.. FINDINGS: There are scattered areas of fibroglandular density. Stable examination. No suspicious masses, areas of developing architectural distortion, or suspicious calcifications. BI/SCRN MAMM (CAD)W/SAMINA BILAT IMPRESSION: BI-RADS 2: BENIGN. RECOMMEND ANNUAL MAMMOGRAPHIC SCREENING. Follow-up code: Routine Follow-up The patient will be notified of the results by letter. Reading Location: [place] [id number]
== END | disposition home or self-care (01) ==
LOC: OPBI 13:56
PROVIDERS: PCP Nurse Practitioner Family; Visit Provider Nurse Practitioner Family
DX: Z12.31 Encounter for screening mammogram for malignant neoplasm of breast (principal)
CPT/HCPCS: 77063; 77067

== ENCOUNTER → 2025-03-09 | Outpatient (CLI) | payer MEDICARE, SELFPAY ==
[2025-03-09 11:04] LABS: Anion Gap 10 (5-15); BUN 18 mg/dL (4-19); BUN/Creat Ratio 25.6 RATIO (10-20); Calcium,Total 9.3 mg/dL (7.6-11.0); Carbon Dioxide 22.4 mmol/L (21.0-32.0); Chloride 104 mmol/L (98-108); Creatinine, Serum 0.72 mg/dL (0.70-1.20); EST Glomerular Filtration Rate 93 (>60); Glucose 106 mg/dL (70-99); Potassium 4.2 mmol/L (3.3-5.1); Sodium Level 136 mmol/L (133-145)
--- OUTSIDE RECORDS SUMMARY | 2025-03-09 18:15 | XMS RPT_ITS | CCD ---
Author Organization [facility] Care Team Providers [employer] Salesperson Name Role Phone Cristi Angelo Unavailable Dr. Colin Gipson Chi Primary Care Provider Shiela Brewer Attending Provider Unavailable Dr. Colin Gipson Chi Referring Provider [phone] Dr. Ashok Fairbanks Attending Provider Dr. Colin Gipson Chi Primary Care Provider Dr. Colin Gipson Chi Referring Provider LUIS A Ramirez Attending Provider Singh VP CARDIOVASCULAR-C, Delphine Primary Care Provider Singh VP CARDIOVASCULAR-C, Delphine Attending Provider Arielle VP CARDIOVASCULAR-CGemini Attending Provider Singh VP CARDIOVASCULAR-C, Delphine Referring Provider Terrie Ramirez Attending Provider Arielle VP CARDIOVASCULAR-CGemini Primary Care Provider Singh VSC, Delphine Primary Care UnavailTerrie Stallworth Attending Unavail able Singh VSCDelphine Referring Unavailabl e Singh VSC, Delphine Primary Care Unavailabl Gemini Peralta Attending Unavailable Singh VSC, Delphien Primary Care Unavailabl e Singh VSC, Delphine Attending Unavailabl e Gemini Guzmán Primary Care Unavailable Terrie Ramirez Attending Unavail able Singh VSC, Delphine Referring Unavailabl e Allergies Allergy Classification Reported Allergen(s) Allergy Type Date of Onset Reaction(s) Facility (8 sources) Nalidixate Drug Allergy 12-17-2021 Vomiting [facility] (1 source) Nalidixate Drug Allergy 02-22-2025 [facility] Repository Medications Current Medications Medication Drug Class(es) Dates Sig (Normalized) Sig (Original) hydroCHLOROthiazide 25 mg oral tablet (2 sources) Thiazide Diuretic Start: End: take 1 tablet by mouth once daily Hydrochlorothiazide 25 mg tablet Active 25 mg PO DAILY February 22, 2025 8:52am losartan potassium 50 mg oral tablet (11 sources) Angiotensin 2 Receptor Kelvin Start: End: take 1 tablet by mouth once daily Losartan 50 mg tablet Active 50 mg PO DAILY February 22, 2025 8:52am Start: 12-21-2022 End: 11-22-2024 take 1 tablet by mouth once daily Losartan 25 mg tablet Discontinued 25 mg PO DAILY December 13, 2023 1:38pm November 22, 2024 2:10pm prednisoLONE acetate 10 mg/ml ophthalmic suspension (15 sources) Corticosteroid Start: 02-13-2022 take 1 drop(s) into the eye(s) once daily Prednisolone Acetate (Pred Forte) 1 % drops,suspension Active 1 NMA OPHTHALMIC DAILY February 13, 2022 12:00am Start: 02-13-2022 take 1 drop(s) into the eye(s) once daily Prednisolone Acetate (Pred Forte) 1 % drops,suspension Active 1 DRP OPHTHALMIC DAILY February 13, 2022 12:00am Start: 01-08-2017 PREDNISOLONE A CETATE 1 % SUSP take as directed PREDNISOLONE ACETATE [id number] Cristi GUNN Start: 11-08-2013 End: 02-05-2022 Prednisolone Acetate 1 DROP drops,suspension Discontinued 1 NMA OPHTHALMIC 4 TIMES DAILY November 08, 2013 1:00am February 05, 2022 2:39pm Start: 11-08-2013 End: 02-05-2022 Prednisolone Acetate Discont inued 1 DRP OPHTHALMIC 4 TIMES DAILY November 08, 2013 1:00am February 05, 2022 2:39pm Timolol (6 sources) beta-Adrenergic Kelvin Start: 02-13-2022 take 0.5 drop(s) into the eye(s) once daily Timolol 0.5 % drops Active 1 NMA OPHTHALMIC DAILY February 13, 2022 12:00am Start: 02-13-2022 Timolol Active 1 DRP OPHTHALMIC DAILY February 13, 2022 12:00am Completed/Discontinued Medications Medication Drug Class(es) Dates Sig (Normalized) Sig (Original) amoxicillin 500 mg oral capsule (8 sources) Penicillin-class Antibacterial Start: 08-01-2020 End: 08-11-2020 take 2 capsules by mouth twice daily Amoxicillin 500 mg capsule Discontinued 1000 mg PO TWICE A DAY 40 August 01, 2020 1:00am August 10, 2020 1:00am August 11, 2020 1:02am Start: 08-01-2020 End: 08-11-2020 take 1000 mg by mouth twice daily Amoxicillin Discontinued 1000 MG PO TWICE A DAY 40 August 01, 2020 1:00am August 11, 2020 1:02am azithromycin 250 mg oral tablet (1 source) Macrolide Antimicrobial Start: 01-08-2017 End: 01-13-2017 ZITHROMAX Z-BRIANNA 250 MG TABS Take 2 pills on day 1 then 1 pill days 2 through 5 AZITHROMYCIN [id number] Cristi GUNN cholecalciferol 0.025 mg oral capsule (6 sources) Vitamin D Start: 02-13-2022 End: 12-21-2022 take 1 capsule by mouth once daily Cholecalciferol (Vitamin D3) 25 mcg (1,000 unit) capsule Discontinued 25 ug PO DAILY February 13, 2022 12:00am December 21, 2022 9:17am 24 hr dilTIAZem hydrochloride 180 mg extended release oral capsule (6 sources) Calcium Channel Kelvin Start: 02-13-2022 End: 12-21-2022 take 1 capsule by mouth once daily Diltiazem Hcl 180 mg capsule,extended release 24 hr Discontinued 180 mg PO DAILY 90 February 13, 2022 12:00am December 21, 2022 9:17am ibuprofen 200 mg oral tablet (1 source) Nonsteroidal Anti-inflammatory Drug Start: 01-08-2017 ADVIL 200 MG CAPS Take as directed IBUPROFEN [id number] Cristi GUNN 24 hr metoprolol succinate 25 mg extended release oral tablet (20 sources) beta-Adrenergic Kelvin Start: 12-12-2022 End: 11-22-2024 take 1 tablet by mouth twice daily Metoprolol Succinate 25 mg tablet extended release 24 hr Discontinued 25 mg PO TWICE A DAY 180 December 21, 2022 9:46am November 22, 2024 2:10pm Start: 02-13-2022 End: 02-13-2022 take 1 tablet by mouth once daily Metoprolol Tartrate 25 mg tablet Discontinued 25 mg PO DAILY February 13, 2022 2:32pm February 13, 2022 2:44pm Start: 02-05-2022 End: 02-13-2022 take 1 tablet by mouth twice daily Metoprolol Tartrate 25 mg tablet Discontinued 25 mg PO TWICE A DAY February 05, 2022 2:39pm February 13, 2022 2:32pm Start: 12-17-2021 End: 02-05-2022 take 1 tablet by mouth once daily Metoprolol Tartrate 25 mg tablet Discontinued 25 mg PO DAILY 60 December 17, 2021 12:00am February 05, 2022 2:39pm predniSONE 10 mg oral tablet (1 source) Corticosteroid Start: 01-08-2017 End: 01-20-2017 PREDNISONE 10 MG TABS 4 tablets daily for 3 days, then 3 tablest daily for 3 days, then 2 tablets daily for 3 days, then 1 tablet daily for 3 days. PREDNISONE [id number] Cristi GUNN Problems Active Problems Problem Classification Problem Date Documented Date Episodic/Chronic Cardiac dysrhythmias (17 sources) Supraventricular tachycardia; Translations: [Supraventricular tachycardia] Chronic Comment on above: ablation 2022 Cardiac dysrhythmias (6 sources) Palpitations; Translations: [Palpitations] 02-05-2022 Episodic Disorders of lipid metabolism (6 sources) Hyperlipidemia; Translations: [Hyperlipidemia, unspecified] 02-05-2022 Chronic Essential hypertension (10 sources) Essential hypertension; Translations: [Essential (primary) hypertension] Onset: 02-22-2025 12-21-2022 Chronic Immunizations and screening for infectious disease (8 sources) Contact with and (suspected) exposure to other viral communicable diseases; Translations: [Contact with or suspected exposure to other viral communicable disease] 02-05-2022 Episodic Other circulatory disease (5 sources) Elevated blood-pressure reading without diagnosis of hypertension; Translations: [Elevated blood-pressure reading, without diagnosis of hypertension] 04-21-2022 Episodic Other screening for suspected conditions (not mental disorders or infectious disease) (1 source) Encounter for screening mammogram for malignant neoplasm of breast; Translations: [Encounter for screening mammogram for malignant neoplasm of breast] Onset: 11-30-2024 Episodic Other upper respiratory infections (8 sources) Acute maxillary sinusitis; Translations: [Acute maxillary sinusitis, unspecified] 02-05-2022 Episodic Residual codes; unclassified (6 sources) Tobacco user; Translations: [Tobacco use] 02-05-2022 Episodic Superficial injury; contusion (20 sources) Contusion of foot; Translations: [Contusion of left foot, initial encounter] 02-05-2022 Episodic Syncope (6 sources) Near syncope; Translations: [Syncope and collapse] 02-05-2022 Episodic Past or Other Problems Problem Classification Problem Date Documented Da te Episodic/Chronic Acute bronchitis (1 source) Acute bronchiolitis; Translations: [Acute bronchiolitis, unspecified] Onset: 01-08-2017 01-08-2017 Episodic Substance-related disorders (1 source) Tobacco abuse counseling; Translations: [Tobacco abuse counseling] Onset: 01-08-2017 01-08-2017 Episodic Results Test Name Value Interpretation Reference Range Facility Cardiology Visit Reporton Cardiology Visit Report [facility] [address] [place] [address]. [address] [place], [place] [address] OFFICE VISIT Date of Service: 02/22/25 MR#: [id number] Acct: [id number] Name: SHWETA IYER Rep #: [id number] : 1960 Provider: LUIS A Bundy Age/Sex: 64/F [place] [facility] [place] Status: Signed HPI HPI History of Present Illness Details: Shweta Iyer is a 64 year-old lady who presents to the office today for a cardiovascular follow-up visit. She was last in the office in 2022. She has a history of palpitations who presented to the emergency room in December of 2021, after developing the same an hour and a half prior to arrival. She called EMS because she was not getting any better and they did a rhythm strip that demonstrated an apparent narrow complex tachycardia. She was shocked with 50 J and then 100 J and they did achieve sinus rhythm. Unfortunately we do not have any strips of the above. She was seen in the emergency room and was noted to have a normal EKG demonstrated normal sinus rhythm with a rate of 90 bpm no delta waves in the electrolytes pattern was noted to be normal. Minimal troponin elevation was noted. She had previously undergone a stress echo in February 2019 demonstrating no evidence of ischemia at a high workload of 10.9 metabolic equivalents. She presented to [facility] on 12/12/2022 with heart racing. This was similar to a year ago. She was noted to be in SVT with a heart rate of 199. She was given 6 mg of IV adenosine encouraged her to back to sinus rhythm. She notes that she had stopped her diltiazem in April d/t elevated BP readings. She was started on metoprolol after her ER visit. In 01/2023 patient underwent successful slow pathway ablation for management of typical AV conor reentrant tachycardia by Dr. Moctezuma here at [facility]. She has not had any episodes since then. She has not been taking her metoprolol for greather than one year. Patient has not had any further palpitations since her ablation. She does have shortness of breath but she does have COPD. She is working on decreasing the amount of smoking. She is now down to 14 cigarettes a day. She does have fatigue but this is similar to previous. She does not have any chest pain. Intake Vital Signs 11/22/24 07:48 02/22/25 08:22 Height 5 ft 5 in 5 ft 5 in Weight: 185 lb 185 lb BMI 30.7 30.7 BP 138/88 H 137/97 H Blood Pressure Location Lt brachial Lt brachial Position Sitting Sitting Respiration 18 18 Pulse 81 77 Pulse Source Monitor Monitor Pulse Oximetry (%) 97 Intake Visit Reasons: 3 M FU Maintenance Job Titles Required: No Accompanied by: Self Is patient in pain?: No Allergies nalidixic acid (From NegGram) Allergy (Verified 02/22/25 08:24) Vomiting Medications ???Medication ???Instructions ???Recorded ???Confirmed ???Type prednisolone acetate 1 % eye 1 drp ophthalmic (eye) DAILY 02/1302/22/25 History drops,suspension (Pred Forte) timolol 0.5 % eye drops 1 drp ophthalmic (eye) DAILY 02/1302/22/25 History hydrochlorothiazide 25 mg tablet 25 mg PO DAILY #90 tabs 02/22/25 0 02/22/25 Rx losartan 50 mg tablet 50 mg PO DAILY #90 tabs 02/22/25 0 02/22/25 Rx Have you fallen in the past year?: No PFSH Medical History Essential hypertension SVT (supraventricular tachycardia) Hyperlipidemia Insomnia Tobacco abuse Alcohol use Depression Glaucoma Eye abnormalities Surgical History History of cardioversion (12/17/21) History of eye surgery History of cornea transplant Family History Father Cancer pancreas Heart disease AFIB Mother Hypertension Heart disease Valvular heart disease Social History Smoking Status: Current every day smoker tobacco type: cigarettes Tobacco: How many years used: 46 alcohol intake: current alcohol intake frequency: 0-2 drinks per day Alcohol type: beer, wine and hard liquor substance use type: does not use ROS Const Const: Positive for fatigue; Negative for weakness Eyes Eyes: Negative for change in vision ENT ENT: Negative for dizziness or balance problems Cardio Chest Pain: No Palpitations: No Edema: None Resp Respiratory: Positive for SOB with activity; Negative for SOB at rest or SOB orthopnea SOB lying down GI GI: Negative nausea or heartburn Musc Musc: Negative for balance problems Neuro Neuro: Negative for dizziness, lightheadedness, near syncope, syncope or weakness Endo Endo: Positive for fatigue Cardiology Exam Const Appearance: cooperative, no acute distress and well developed Orientation: alert, awake and oriented x3 (more content not included)... Normal [facility] Cardiology Visit Reporton Cardiology Visit Report [facility] [address] [place] [address] OFFICE VISIT Date of Service: 11/22/24 MR#: [id number] Acct: [id number] Name: SHWETA IYER Rep #: [id number] : 1960 Provider: LUIS A Bundy Age/Sex: 64/F Location[place] [facility] [place] Status: Signed HPI HPI History of Present Illness Details: Shweta Iyer is a 64 year-old lady who presents to the office today for a cardiovascular follow-up visit. She was last in the office in 2022. She has a history of palpitations who presented to the emergency room in December of 2021, after developing the same an hour and a half prior to arrival. She called EMS because she was not getting any better and they did a rhythm strip that demonstrated an apparent narrow complex tachycardia. She was shocked with 50 J and then 100 J and they did achieve sinus rhythm. Unfortunately we do not have any strips of the above. She was seen in the emergency room and was noted to have a normal EKG demonstrated normal sinus rhythm with a rate of 90 bpm no delta waves in the electrolytes pattern was noted to be normal. Minimal troponin elevation was noted. She had previously undergone a stress echo in February 2019 demonstrating no evidence of ischemia at a high workload of 10.9 metabolic equivalents. She presented to [facility] on 12/12/2022 with heart racing. This was similar to a year ago. She was noted to be in SVT with a heart rate of 199. She was given 6 mg of IV adenosine encouraged her to back to sinus rhythm. She notes that she had stopped her diltiazem in April d/t elevated BP readings. She was started on metoprolol after her ER visit. In 01/2023 patient underwent successful slow pathway ablation for management of typical AV conor reentrant tachycardia by Dr. Moctezuma here at [facility]. She has not had any episodes since then. She has not been taking her metoprolol for greather than one year. Pt established with Isaura Huntley, her BP was noted to be elevated. PCP increased her medication, but she has not done so yet. She is getting over a URI. BP at home has been 127-138/80-94. She does not have any chest pain. She does not have any worsening shortness of breath. She does not have any lightheadedness or dizziness. She does admit that her blood pressure is higher at home. However she did not like the diltiazem. Intake Vital Signs 01/14/23 10:32 11/22/24 07:48 Height 5 ft 5 in 5 ft 5 in Weight: 185 lb BMI 30.7 BP 138/88 H Blood Pressure Location Lt brachial Position Sitting Respiration 18 Pulse 81 Pulse Source Monitor Pulse Oximetry (%) 97 Intake Visit Reasons: OVERDUE FOR OV/LAST SEEN 01/03 Maintenance Job Titles Required: No Is patient in pain?: No Allergies nalidixic acid (From NegGram) Allergy (Verified 11/22/24 13:42) Vomiting Medications ???Medication ???Instructions ???Recorded ???Confirmed ???Type prednisolone acetate 1 % eye 1 drp ophthalmic (eye) DAILY 02/1311/22/24 History drops,suspension (Pred Forte) timolol 0.5 % eye drops 1 drp ophthalmic (eye) DAILY 02/1311/22/24 History losartan 50 mg tablet 50 mg PO DAILY #90 tabs 11/22/24 0 11/22/24 Rx Ejection fraction %: 65 Have you fallen in the past year?: No PFSH Medical History Essential hypertension SVT (supraventricular tachycardia) Hyperlipidemia Insomnia Tobacco abuse Alcohol use Depression Glaucoma Eye abnormalities Surgical History History of cardioversion (12/17/21) History of eye surgery History of cornea transplant Family History Father Cancer pancreas Heart disease AFIB Mother Hypertension Heart disease Valvular heart disease Social History Smoking Status: Current every day smoker tobacco type: cigarettes Tobacco: How many years used: 46 alcohol intake: current alcohol intake frequency: 0-2 drinks per day Alcohol type: beer, wine and hard liquor substance use type: does not use ROS Const Const: Negative for fatigue, weakness, headache(s) or frequent falls Eyes Eyes: Positive for other (old right eye injury); Negative for blurry vision ENT ENT: Negative for headache(s), dizziness or Nosebleed/epistaxis Cardio Chest Pain: No Palpitations: No Edema: None Muscle aches with walking: None Resp Respiratory: Negative for SOB with activity, SOB at rest or SOB orthopnea SOB lying down GI GI: Negative nausea, vomiting, heartburn, bright, red blood in stools or black,tarry stools : Negative for hematuria Neuro Neuro: Negative for dizziness, lightheadedness, near syncope, syncope, f (more content not included)... Normal [facility] Breast imaging reportOrdered By: Cam Gross on 11-21-2024 Study report [facility] Imaging Services [address] [place], [place] [address] SCRN MAMM (CAD)W/SAMINA BILAT MR#: [id number] Acct: [id number] Name: SHWETA IYER Rep #: [id number] : 1960 F 64 From: Guillaume Gross MD PCP: JIMBO Loomis, VP CARDIOVASCULAR-C Status: REG CLI Study:SCRN MAMM (CAD)W/SAMINA BILAT Date of Exa m: 11/20/24 Exam# [id number] Ordering Dr: Gemini Guzmán VP CARDIOVASCULARRocíoC PROCEDURE: SCRN MAMM (CAD)W/SAMINA BILAT REASON FOR EXAM: F, Age 64 y/o, annual follow-up. No known family history. TECHNIQUE: Bilateral screening digital breast tomosynthesis with 2D and 3D images. Computeraided detection. COMPARISON: Prior exam(s) dating back to January 26, 2023.. FINDINGS: There are scattered areas of fibroglandular density. Stable examination. No suspicious masses, areas of developing architectural distortion, or suspicious calcifications. BI/SCRN MAMM (CAD)W/SAMINA BILAT IMPRESSION: BI-RADS 2: BENIGN. RECOMMEND ANNUAL MAMMOGRAPHIC SCREENING. Follow-up code: Routine Follow-up The patient will be notified of the results by letter. Reading Location: [facility] CC: PAYTON Guzmán; [facility] PAYTON Winters ~ Safety Relief Valve Technician: Signed [facility] SCRN MAMM (CAD)W/SAMINA BILATo n 11-20-2024 SCRN MAMM (CAD)W/SAMINA BILAT [facility] Imaging Services [address] [place] [address] SCRN MAMM (CAD)W/SAMINA BILAT MR#: [id number] Acct: [id number] Name: SHWETA IYER Rep #: [id number] : 1960 F 64 From: Cam rojas MD PCP: JIMBO Loomis, VP CARDIOVASCULARRocíoC Status: REG CLI Study: SCRN MAMM (CAD)W/SAMINA BILAT Date of Exam: 11/11 Exam# [id number] Ordering Dr: Gemini GuzmánC PROCEDURE: SCRN MAMM (CAD)W/SAMINA BILAT REASON FOR EXAM: F, Age 64 y/o, annual follow-up. No known family history. TECHNIQUE: Bilateral screening digital breast tomosynthesis with 2D and 3D images. Computer aided detection. COMPARISON: Prior exam(s) dating back to January 26, 2023.. FINDINGS: There are scattered areas of fibroglandular density. Stable examination. No suspicious masses, areas of developing architectural distortion, or suspicious calcifications. BI/SCRN MAMM (CAD)W/SAMINA BILAT IMPRESSION: BI-RADS 2: BENIGN. RECOMMEND ANNUAL MAMMOGRAPHIC SCREENING. Follow-up code: Routine Follow-up The patient will be notified of the results by letter. Reading Location: [place] [address] CC: PAYTON Guzmán; [facility] PAYTON Winters Safety Relief Valve Technician: Signed Normal [facility] Anion gap in Serum or Plasma Ordered By: [facility] Delphine Winters on 11-14-2024 Anion gap [Moles/Vol] 11 mmol/L 5-15 [facility] BUN/creatinine ratioOrdered By: [facility] Delphine Winters on 11-14-2024 Urea nitrogen/Creatinine [Mass ratio] 18.5 mg/mg 10-20 [facility] Bilirubin, totalOrdered By: [facility] Delphine Winters on 11-14-2024 Bilirubin [Mass/Vol] 0.41 mg/dL 0.00-1.30 [facility] Calculated very low density lipoprotein (VLDL) cholesterol measurementOrdered By: [facility] Delphine Winters on 11-14-2024 Calculated very low density lipoprotein (VLDL) cholesterol measurement 23 mg/dL 5-40 [facility] VLDL Cholesterol 23 mg/dL -40 [facility] Carbon dioxide, total [Moles /volume] in Central venous bloodOrdered By: [facility] Delphine Winters on 11-14-2024 CO2 [Moles/Vol] 23.3 mmol/L 21.0-32.0 [facility] Chloride assayOrdered By: [facility] Delphine Winters on 11-14-2024 Chloride [Moles/Vol] 104 mmol/L 98-108 [facility] Comprehensive Metabolic Prof ilon 11-14-2024 Albumin [Mass/Vol] 4.2 g/dL Normal 3.4-4.8 [facility] Comment on above: Performed By: #### L 500.4050, L500.4100 #### [facility] [address] [place], [address] Albumin/Globulin [Mass ratio] 1.5 {ratio} Normal 0.9-2.4 [facility] Comment on above: Performed By: #### L 500.4050, L500.4100 #### [facility] [address] [place], [address] ALK PHOS 116 U/L High 35-104 [facility] Comment on above: Performed By: #### L 500.4050, L500.4100 #### [facility] [address] [place], [address] ALT [Catalytic activity/Vol] U/L Normal <=34 [facility] Comment on above: Performed By: #### L 500.4050, L500.4100 #### [facility] [address] [place], [address] AST [Catalytic activity/Vol] 16 U/L Normal <=31 [facility] Comment on above: Performed By: #### L 500.4050, L500.4100 #### [facility] [address] [place], [address] Bilirubin [Mass/Vol] 0.41 mg/dL Normal 0.00-1.30 [facility] Comment on above: Performed By: #### L 500.4050, L500.4100 #### [facility] [address] [place], [address] BUN/CRE 18.5 RATIO Normal 10-20 [facility] Comment on above: Performed By: #### L 500.4050, L500.4100 #### [facility] [address] [place], [address] Calcium [Mass/Vol] 9.5 mg/dL Normal 7.6-11.0 [facility] Comment on above: Performed By: #### L 500.4050, L500.4100 #### [facility] [address] [place], [address] Chloride [Moles/Vol] 104 mmol/L Normal 98-108 [facility] Comment on above: Performed By: #### L 500.4050, L500.4100 #### [facility] [address] [place], [address] CO2 [Moles/Vol] 23.3 mmol/L Normal 21.0-32.0 [facility] Comment on above: Performed By: #### L 500.4050, L500.4100 #### [facility] [address] [place], [address] Creatinine [Mass/Vol] 0.67 mg/dL Low 0.70-1.20 [facility] Comment on above: Performed By: #### L 500.4050, L500.4100 #### [facility] [address] [place], [address] GAP 11 Normal 5-15 [facility] Comment on above: Performed By: #### L 500.4050, L500.4100 #### [facility] [address] [place], [address] GFR/1.73 sq M.predicted among non-blacks MDRD (S/P/Bld) [Vol rate/Area] 97 mL/min/{1.73_m2} Normal >60 [facility] Comment on above: Result Comment: mL/m in/1.73m2 CKD-EPI Creatinine Equation (2020) Performed By: #### L 500.4050, L500.4100 #### [facility] [address] [place], [address] Globulin (S) [Mass/Vol] 2.8 g/dL Normal 2.2-4.2 [facility] Comment on above: Performed By: #### L [id number], [id number] #### [facility] [address] [place], [address] Glucose [Mass/Vol] 110 mg/dL High 70-99 [facility] Comment on above: Performed By: #### L [id number], [id number] #### [facility] [address] [place], [address] Potassium [Moles/Vol] 4.5 mmol/L Normal 3.3-5.1 [facility] Comment on above: Performed By: #### L [id number], [id number] #### [facility] [address] [place], [address] Sodium [Moles/Vol] 139 mmol/L Normal 133-145 [facility] Comment on above: Performed By: #### L 500.4050, [id number] #### [facility] [address] [place], [address] T PROT 7.0 g/dL Normal 5.9-8.4 [facility] Comment on above: Performed By: #### L 500.4050, [id number] #### [facility] [address] [place], [place], [id number] Urea nitrogen [Mass/Vol] 12 mg/dL Normal 4-19 [facility] Comment on above: Performed By: #### L [id number], [id number] #### [facility] [address] [place], [address] GFR/1.73 sq M.predicted killian g non-blacks MDRD (S/P/Bld) [Vol rate/Area]Ordered By: [facility] Delphine Winters on 11-14-2024 Estimated GFR (MDRD) Non-Af Amer 97 >60 [facility] Comment on above: mL/min/1.73m2 CKD-EP I Creatinine Equation (2020) Glomerular filtration rate ( GFR) estimation/1.73 sq m using serum, plasma, or whole bOrdered By: [facility] Delphine Winters on 11-14-2024 GFR/1.73 sq M.predicted among non-blacks MDRD (S/P/Bld) [Vol rate/Area] 97 mL/min/{1.73_m2} >60 [facility] Comment on above: mL/min/1.73m2 CKD-EP I Creatinine Equation (2020) LDL calc ser/plasOrdered By: [facility] Delphine Winters on 11-14-2024 Cholesterol in LDL [Mass/Vol] 102 mg/dL [facility] Comment on above: Pqifmydwmt=297-998 m g/dL & Higher Ledk=434 mg/dL or greater LDL Cholesterol, Calculated 102 mg/dL [facility] Comment on above: Mmrtbsrrln=108-764 m g/dL & Higher Kprz=460 mg/dL or greater Laboratory - Chemistry and C hemistry - challengeOrdered By: [facility] Delphine Winters on 11-14-2024 AST [Catalytic activity/Vol] 16 U/L <32 [facility] Lipid Profileon 11-14-2024 CHOL:HDL 3.77 Normal [facility] Comment on above: Performed By: #### L 500.4050, L500.4100 #### [facility] [address] [place], [address] Cholesterol [Mass/Vol] 171 mg/dL Normal <=200 [facility] Comment on above: Result Comment: Chol esterol level, Desirable <200 mg/dL Borderline high cholesterol 200-239 mg/dL High cholesterol >=240 mg/dL Recommendations of the NCEP Adult Treatment Panel for the following risk-cutoff thresholds for the [place] population. Performed By: #### L 500.4050, L500.4100 #### [facility] [address] [place], [address] Cholesterol in HDL [Mass/Vol] 45 mg/dL Normal [facility] Comment on above: Result Comment: Maria onal Cholesterol Education Program (NCEP) guidelines: <40 mg/dL: Low HDL-cholesterol (major risk factor for CHD) >= 60 mg/dL: High HDL-cholesterol (negative risk factor for CHD) HDL-cholesterol is affected by a number of factors, e.g. smoking, exercise, hormones, sex and age. Performed By: #### L 500.4050, L500.4100 #### [facility] [address] [place], [address] Cholesterol in LDL [Mass/Vol] 102 mg/dL Normal [facility] Comment on above: Result Comment: Bord iqqvzv=164-109 mg/dL Higher Iyeh=119 mg/dL or greater Performed By: #### L 500.4050, L500.4100 #### [facility] [address] [place], [address] Cholesterol in VLDL [Mass/Vol] 23 mg/dL Normal 5-40 [facility] Comment on above: Performed By: #### L 500.4050, L500.4100 #### [facility] [address] [place], [address] Triglyceride [Mass/Vol] 117 mg/dL Normal [facility] Comment on above: Result Comment: The drugs N-Acetylcysteine and Metamizole may falsely depress this assay. Normal range: <150 mg/dL Borderline High: 150-199 mg/dL High: 200-499 mg/dL Very High: >500 mg/dL Performed By: #### L 500.4050, L500.4100 #### [facility] [place], [address] Potassium (Unsp spec) [Mass/ Vol]Ordered By: [facility] Delphine Winters on 11-14-2024 Potassium [Moles/Vol] 4.5 mmol/L 3.3-5.1 [facility] Potassium measurement (mass/ volume)Ordered By: [facility] Delphine Winters on 11-14-2024 Potassium (Unsp spec) [Mass/Vol] 4.5 mmol/L 3.3-5.1 [facility] Screening total cholesterol/ high density lipoprotein (HDL) cholesterol ratioOrdered By: [facility] Delphine Winters on 11-14-2024 Cholesterol.total/Chol esterol in HDL [Mass ratio] 3.77 {ratio} [facility] Serum creatinine measurement (mass/volume)Ordered By: [facility] Delphine Winters on 11-14-2024 Creatinine [Mass/Vol] 0.67 mg/dL Low 0.70-1.20 [facility] Serum globulin measurementOr dered By: [facility] Delphine Winters on 11-14-2024 Globulin (S) [Mass/Vol] 2.8 g/dL 2.2-4.2 [facility] Serum glucose measurement (m ass/volume)Ordered By: [facility] Delphine Winters on 11-14-2024 Glucose [Mass/Vol] 110 mg/dL High 70-99 [facility] Serum or plasma alanine arias otransferase (ALT) measurementOrdered By: [facility] Delphine Winters on 11-14-2024 ALT [Catalytic activity/Vol] U/L <35 [facility] Serum or plasma albumin hong urement (mass/volume)Ordered By: [facility] Delphine Winters on 11-14-2024 Albumin [Mass/Vol] 4.2 g/dL 3.4-4.8 [facility] Serum or plasma albumin/glob ulin mass ratioOrdered By: [facility] Delphine Winters on 03-04-2025 Albumin/Globulin [Mass ratio] 1.5 {ratio} 0.9-2.4 [facility] Serum or plasma alkaline jeannie sphatase measurementOrdered By: [facility] Delphine Winters on 11-14-2024 ALP [Catalytic activity/Vol] 116 U/L High 35-104 [facility] Serum or plasma calcium hong urement (mass/volume)Ordered By: [facility] Delphine Winters on 11-14-2024 Calcium [Mass/Vol] 9.5 mg/dL 7.6-11.0 [facility] Serum or plasma cholesterol in HDL measurement (mass/volume)Ordered By: [facility] Delphine Winters on 11-14-2024 Cholesterol in HDL [Mass/Vol] 45 mg/dL >40 [facility] Comment on above: National Cholesterol Education Program (NCEP) guidelines:<40 mg/dL: Low HDL-cholesterol (major risk factor for CHD)>= 60 mg/dL: High HDL-cholesterol (negative risk factor for CHD)HDL-cholesterol is affected by a number of factors, e.g. smoking, exercise, hormones, sex and age. Serum or plasma cholesterol measurement (mass/volume)Ordered By: [facility] Delphine Winters on 11-14-2024 Cholesterol [Mass/Vol] 171 mg/dL <201 [facility] Comment on above: Cholesterol level, D esirable <200 mg/dLBorderline high cholesterol 200-239 mg/dLHigh cholesterol >=240 mg/dLRecommendations of the NCEP Adult Treatment Panel for the following risk-cutoff thresholds for the [place] population. Serum or plasma urea nitroge n measurement (mass/volume)Ordered By: [facility] Delphine Winters on 11-14-2024 Urea nitrogen [Mass/Vol] 12 mg/dL 4-19 [facility] Sodium levelOrdered By: [facility] on 11-14-2024 Sodium [Moles/Vol] 139 mmol/L 133-145 [facility] Total proteinOrdered By: [facility] Delphine Winters on 11-14-2024 Protein [Mass/Vol] 7.0 g/dL 5.9-8.4 [facility] Triglycerides measurementOrd ered By: [facility] Delphine Winters on 11-14-2024 Triglyceride [Mass/Vol] 117 mg/dL <199 [facility] Comment on above: The drugs N-Acetylcy steine and Metamizole may falsely depress this assay. Normal range: <150 mg/dLBorderline High: 150-199 mg/dLHigh: 200-499 mg/dLVery High: >500 mg/dL Absolute lymphocyte countOrd ered By: Dr. Gipson on 01-20-2023 Lymphocytes Auto (Unsp spec) [#/Vol] 1.39 10*3/uL 0.83-4.51 [facility] Basophil percentageOrdered B y: Dr. Gipson on 01-20-2023 Basophils/100 WBC (Bld) 0.7 % 0-1 [facility] Bilirubin [Mass/Vol] 0.40 mg/dL 0.20-1.00 [facility] Comment on above: For patients on eltr ombopag therapy, use of Dimension [place] TBIL is not recommended. Chloride [Moles/Vol] 110 mmol/L 98-107 [facility] Eosinophils/100 WBC (Bld) 2.2 % 0-5 [facility] Glucose [Mass/Vol] 88 mg/dL 74-106 [facility] Neutrophils (Bld) [#/Vol] 3.3 10*3/uL 2.0-7.7 [facility] Neutrophils/100 WBC (Bld) 60.9 % 47-70 [facility] Potassium [Moles/Vol] 4.1 mmol/L 3.5-5.1 [facility] Protein [Mass/Vol] 6.6 g/dL 6.4-8.2 [facility] Sodium [Moles/Vol] 141 mmol/L 136-145 [facility] WBC (Bld) [#/Vol] 5.4 10*3/uL 4.4-11.0 [facility] Blood erythrocytes count (nu mber/volume)Ordered By: Dr. Gipson on 01-20-2023 RBC (Bld) [#/Vol] 4.70 10*6/uL 4.2-5.4 [facility] Blood hemoglobin measurement (mass/volume)Ordered By: Dr. Gipson on 01-20-2023 Hemoglobin (Bld) [Mass/Vol] 15.3 g/dL 12.0-15.0 [facility] Blood lymphocytes/100 leukoc ytesOrdered By: Dr. Gipson on 01-20-2023 Lymphocytes/100 WBC (Bld) 25.8 % 19-41 [facility] Blood monocytes/100 leukocyt esOrdered By: Dr. Gipson on 01-20-2023 Monocytes/100 WBC (Bld) 9.8 % 0-10 [facility] Blood platelet mean volumeOr dered By: Dr. Gipson on 01-20-2023 Platelet mean volume (Bld) [Entitic vol] 10.1 fL 6.2-12.0 [facility] Determination of erythrocyte mean corpuscular volume (MCV)Ordered By: Dr. Gipson on 01-20-2023 MCV (RBC) [Entitic vol] 96.6 fL 81-99 [facility] Hematocrit Auto (Bld) [Volum e fraction]Ordered By: Dr. Gipson on 01-20-2023 Hematocrit (Bld) [Volume fraction] 45.4 % 37-47 [facility] - Chemistry and C hemistry - challengeOrdered By: Dr. Gipson on 01-20-2023 ALP [Catalytic activity/Vol] 98 U/L 45-117 [facility] ALT [Catalytic activity/Vol] 21 U/L 13-56 [facility] CO2 [Moles/Vol] 26.0 mmol/L 21.0-32.0 [facility] Globulin (S) [Mass/Vol] 3.0 g/dL 2.2-4.2 [facility] Urea nitrogen/Creatinine [Mass ratio] 22.2 mg/mg 10-20 [facility] - Hematology and Cell countsOrdered By: Dr. Gipson on 01-20-2023 Erythrocyte distribution width (RBC) [Entitic vol] 45.0 fL 35.1-43.9 [facility] Erythrocyte distribution width (RBC) [Ratio] 12.6 % 11.6-14.6 [facility] Immature granulocytes/100 WBC (Bld) 0.600 % 0.0-0.9 [facility] Comment on above: IG% - Immature Granu locytes (promyelocytes, myelocytes and metamyelocytes) > 1% indicates that a LEFT SHIFT is Present. MCH (RBC) [Entitic mass] 32.6 pg 27.0-32.0 [facility] Nucleated RBC/100 WBC (Bld) [Ratio] 0 % 0-5 [facility] ([facility]BC) [Mass/Vol]Or dered By: Dr. Gipson on 01-20-2023 MCHC (RBC) [Mass/Vol] 33.7 g/dL 32-36 [facility] No Panel InformationOrdered By: Dr. Gipson on 01-20-2023 Estimated GFR (MDRD) Amer 122 mL/min >60 [facility] Comment on above: GFR Calc Estimated GFR (MDRD) Non-Af Amer 101 mL/min >60 [facility] Comment on above: Non- GFR Calc Thyroid Stimulating Hormone (TSH) 2.20 uIU/mL 0.358-3.74 [facility] Platelets bldOrdered By: Dr. Gipson on 01-20-2023 Platelets (Bld) [#/Vol] 208 10*3/uL 150-450 [facility] Serum or plasma albumin hong urement (mass/volume)Ordered By: Dr. Gipson on 01-20-2023 Albumin [Mass/Vol] 3.6 g/dL 3.2-5.0 [facility] Serum or plasma albumin/glob ulin mass ratioOrdered By: Dr. Gipson on 01-20-2023 Albumin/Globulin [Mass ratio] 1.2 {ratio} 0.9-2.4 [facility] Serum or plasma calcium hong urement (mass/volume)Ordered By: Dr. Gipson on 01-20-2023 Calcium [Mass/Vol] 8.7 mg/dL 8.5-10.1 [facility] Serum or plasma creatinine m easurement (mass/volume)Ordered By: Dr. Gipson on 01-20-2023 Creatinine [Mass/Vol] 0.63 mg/dL 0.55-1.02 [facility] Comment on above: The validity of the calculated GFR & GFRAA in patients over 70 years has not been determined. Clinical correlation is essential. Serum or plasma urea nitroge n measurement (mass/volume)Ordered By: Dr. Gipson on 01-20-2023 Urea nitrogen [Mass/Vol] 14 mg/dL 7-18 [facility] Thin prep Papanicolaou smear with manual screeningOrdered By: Dr. Gipson on 01-20-2023 Thin prep Papanicolaou smear with manual screening 12 U/L 15-37 [facility] Thin prep Papanicolaou smear with manual screening 5 5-15 [facility] Absolute lymphocyte countOrd ered By: Terrie Davey on 12-28-2022 Lymphocytes Auto (Unsp spec) [#/Vol] 1.83 10*3/uL 0.83-4.51 [facility] Basophil percentageOrdered B y: Terrie Davey on 12-28-2022 Basophils/100 WBC (Bld) 0.7 % 0-1 [facility] Chloride [Moles/Vol] 113 mmol/L 98-107 [facility] Eosinophils/100 WBC (Bld) 1.6 % 0-5 [facility] Glucose [Mass/Vol] 101 mg/dL 74-106 [facility] Comment on above: Fasting Glucose resu lt from 100 to 125 mg/dL suggests IMPAIRED HOMEOSTASIS per A.D.A. criteria. Neutrophils (Bld) [#/Vol] 3.1 10*3/uL 2.0-7.7 [facility] Neutrophils/100 WBC (Bld) 55.0 % 47-70 [facility] Potassium [Moles/Vol] 4.3 mmol/L 3.5-5.1 [facility] Sodium [Moles/Vol] 139 mmol/L 136-145 [facility] WBC (Bld) [#/Vol] 5.6 10*3/uL 4.4-11.0 [facility] Blood erythrocytes count (nu mber/volume)Ordered By: Terrie Davey on 12-28-2022 RBC (Bld) [#/Vol] 4.95 10*6/uL 4.2-5.4 [facility] Blood hemoglobin measurement (mass/volume)Ordered By: Terrie Davey on 12-28-2022 Hemoglobin (Bld) [Mass/Vol] 16.1 g/dL 12.0-15.0 [facility] Blood lymphocytes/100 leukoc ytesOrdered By: Terrie Davey on 12-28-2022 Lymphocytes/100 WBC (Bld) 32.9 % 19-41 [facility] Blood monocytes/100 leukocyt esOrdered By: Terrie Davey on 12-28-2022 Monocytes/100 WBC (Bld) 9.4 % 0-10 [facility] Blood platelet mean volumeOr dered By: Terrie Davey on 12-28-2022 Platelet mean volume (Bld) [Entitic vol] 9.4 fL 6.2-12.0 [facility] Determination of erythrocyte mean corpuscular volume (MCV)Ordered By: Terrie Davey on 12-28-2022 MCV (RBC) [Entitic vol] 96.8 fL 81-99 [facility] Hematocrit Auto (Bld) [Volum e fraction]Ordered By: Terrie Davey on 12-28-2022 Hematocrit (Bld) [Volume fraction] 47.9 % 37-47 [facility] - Chemistry and C hemistry - challengeOrdered By: Terrie Davey on 12-28-2022 CO2 [Moles/Vol] 28.0 mmol/L 21.0-32.0 [facility] Urea nitrogen/Creatinine [Mass ratio] 17.3 mg/mg 10-20 [facility] - Hematology and Cell countsOrdered By: Terrie Davey on 12-28-2022 Erythrocyte distribution width (RBC) [Entitic vol] 46.4 fL 35.1-43.9 [facility] Erythrocyte distribution width (RBC) [Ratio] 12.9 % 11.6-14.6 [facility] Immature granulocytes/100 WBC (Bld) 0.400 % 0.0-0.9 [facility] Comment on above: IG% - Immature Granu locytes (promyelocytes, myelocytes and metamyelocytes) > 1% indicates that a LEFT SHIFT is Present. MCH (RBC) [Entitic mass] 32.5 pg 27.0-32.0 [facility] Nucleated RBC/100 WBC (Bld) [Ratio] 0 % 0-5 [facility] MCHC Auto (RBC) [Mass/Vol]Or dered By: Terrie Davey on 12-28-2022 MCHC (RBC) [Mass/Vol] 33.6 g/dL 32-36 [facility] No Panel InformationOrdered By: Terrie Davey on 12-28-2022 Estimated GFR (MDRD) Amer 110 mL/min >60 [facility] Comment on above: GFR Calc Estimated GFR (MDRD) Non-Af Amer 91 mL/min >60 [facility] Comment on above: Non- GFR Calc Platelets bldOrdered By: Sudhakar rosamarbella Davey on 12-28-2022 Platelets (Bld) [#/Vol] 222 10*3/uL 150-450 [facility] Serum or plasma calcium hong urement (mass/volume)Ordered By: Terrie Davey on 12-28-2022 Calcium [Mass/Vol] 9.1 mg/dL 8.5-10.1 [facility] Serum or plasma creatinine m easurement (mass/volume)Ordered By: Terrie Davey on 12-28-2022 Creatinine [Mass/Vol] 0.69 mg/dL 0.55-1.02 [facility] Comment on above: The validity of the calculated GFR & GFRAA in patients over 70 years has not been determined. Clinical correlation is essential. Serum or plasma urea nitroge n measurement (mass/volume)Ordered By: Terrie Davey on 12-28-2022 Urea nitrogen [Mass/Vol] 12 mg/dL 7-18 [facility] Thin prep Papanicolaou smear with manual screeningOrdered By: Terrie Davey on 12-28-2022 Thin prep Papanicolaou smear with manual screening -2 5-15 [facility] Absolute lymphocyte countOrd ered By: Dr. Walker on 12-12-2022 Lymphocytes Auto (Unsp spec) [#/Vol] 3.30 10*3/uL 0.83-4.51 [facility] Basophil percentageOrdered B y: Dr. Walker on 12-12-2022 Basophils/100 WBC (Bld) 0.5 % 0-1 [facility] Chloride [Moles/Vol] 109 mmol/L 98-107 [facility] Eosinophils/100 WBC (Bld) 1.1 % 0-5 [facility] Glucose [Mass/Vol] 211 mg/dL 74-106 [facility] Comment on above: Glucose result great er than or equal to 200 mg/dLsuggests DIABETES MELLITUS per A.D.A. criteria. Neutrophils (Bld) [#/Vol] 8.3 10*3/uL 2.0-7.7 [facility] Neutrophils/100 WBC (Bld) 64.8 % 47-70 [facility] Potassium [Moles/Vol] 4.2 mmol/L 3.5-5.1 [facility] Sodium [Moles/Vol] 141 mmol/L 136-145 [facility] WBC (Bld) [#/Vol] 12.7 10*3/uL 4.4-11.0 [facility] Blood erythrocytes count (nu mber/volume)Ordered By: Dr. Walker on 12-12-2022 RBC (Bld) [#/Vol] 5.60 10*6/uL 4.2-5.4 [facility] Blood hemoglobin measurement (mass/volume)Ordered By: Dr. Walker on 12-12-2022 Hemoglobin (Bld) [Mass/Vol] 18.1 g/dL 12.0-15.0 [facility] Comment on above: CRITICAL VALUE VERIF IED. CALLED TO AGATHA LEDESMA12/12/22 1126 Marina Dominguez.RESULTS READ BACK BY SAME . Blood lymphocytes/100 leukoc ytesOrdered By: Dr. Walker on 12-12-2022 Lymphocytes/100 WBC (Bld) 25.9 % 19-41 [facility] Blood monocytes/100 leukocyt esOrdered By: Dr. Walker on 12-12-2022 Monocytes/100 WBC (Bld) 7.2 % 0-10 [facility] Blood platelet mean volumeOr dered By: Dr. Walker on 12-12-2022 Platelet mean volume (Bld) [Entitic vol] 9.5 fL 6.2-12.0 [facility] Determination of erythrocyte mean corpuscular volume (MCV)Ordered By: Dr. Walker on 12-12-2022 MCV (RBC) [Entitic vol] 95.4 fL 81-99 [facility] Hematocrit Auto (Bld) [Volum e fraction]Ordered By: Dr. Walker on 12-12-2022 Hematocrit (Bld) [Volume fraction] 53.4 % 37-47 [facility] - Chemistry and C hemistry - challengeOrdered By: Dr. Walker on 12-12-2022 CO2 [Moles/Vol] 24.0 mmol/L 21.0-32.0 [facility] Magnesium [Mass/Vol] 2.1 mg/dL 1.6-2.6 [facility] Urea nitrogen/Creatinine [Mass ratio] 11.2 mg/mg 10-20 [facility] - Hematology and Cell countsOrdered By: Dr. Walker on 12-12-2022 Erythrocyte distribution width (RBC) [Entitic vol] 46.9 fL 35.1-43.9 [facility] Erythrocyte distribution width (RBC) [Ratio] 13.2 % 11.6-14.6 [facility] Immature granulocytes/100 WBC (Bld) 0.500 % 0.0-0.9 [facility] Comment on above: IG% - Immature Granu locytes (promyelocytes, myelocytes and metamyelocytes) > 1% indicates that a LEFT SHIFT is Present. MCH (RBC) [Entitic mass] 32.3 pg 27.0-32.0 [facility] Nucleated RBC/100 WBC (Bld) [Ratio] 0 % 0-5 [facility] MCHC Auto (RBC) [Mass/Vol]Or dered By: Dr. Walker on 12-12-2022 MCHC (RBC) [Mass/Vol] 33.9 g/dL 32-36 [facility] No Panel InformationOrdered By: Dr. Walker on 12-12-2022 Estimated Creatinine Clearance Calc 44.67 ml/min [facility] Estimated GFR (MDRD) Amer 61 mL/min >60 [facility] Comment on above: GFR Calc Estimated GFR (MDRD) Non-Af Amer 50 mL/min >60 [facility] Comment on above: Non- GFR Calc Troponin I High Sensitivity 13 pg/mL 3.0-54.0 [facility] Comment on above: Please Note: New Doreen t Units and Gender Specific Reference Ranges. For more information see Policy Stat Procedure [place] High Sensitivity Troponin (TNIH) and attachments. Platelets bldOrdered By: Dr. Walker on 12-12-2022 Platelets (Bld) [#/Vol] 307 10*3/uL 150-450 [facility] Review by pathologistOrdered By: Dr. Walker on 12-12-2022 Pathologist review Miguel A (Unsp spec) [Interp] Allison sanchez [facility] Pathologist review Miguel A (Unsp spec) [Interp] Reviewed [facility] Comment on above: Previous reported re sult: Allison sanchez Edited by: RAQUEL on 12/14/22:1308Polycythemia Leukocytosis.Clinical correlation necessary.Erik Morgan M.D. 12/14/22 AMENDED REPORT 12/14/22 1308 PATH REV previously reported as: Allison daniel Serum or plasma calcium hong urement (mass/volume)Ordered By: Dr. Walker on 12-12-2022 Calcium [Mass/Vol] 9.6 mg/dL 8.5-10.1 [facility] Serum or plasma creatinine m easurement (mass/volume)Ordered By: Dr. Walker on 12-12-2022 Creatinine [Mass/Vol] 1.16 mg/dL 0.55-1.02 [facility] Comment on above: The validity of the calculated GFR & GFRAA in patients over 70 years has not been determined. Clinical correlation is essential. Serum or plasma urea nitroge n measurement (mass/volume)Ordered By: Dr. Walker on 12-12-2022 Urea nitrogen [Mass/Vol] 13 mg/dL 7-18 [facility] Thin prep Papanicolaou smear with manual screeningOrdered By: Dr. Walker on 12-12-2022 Thin prep Papanicolaou smear with manual screening 8 5-15 [facility] Absolute lymphocyte counton 12-18-2021 Lymphocytes Auto (Unsp spec) [#/Vol] 1.74 10*3/uL 0.83-4.51 [facility] Work Phone: Basophil percentageon 2021 Basophils/100 WBC (Bld) 0.3 % 0-1 [facility] [facility] Work Phone: Bilirubin [Mass/Vol] 0.30 mg/dL 0.20-1.00 [facility] Work Phone: Comment on above: For patients on eltr ombopag therapy, use of [place] TBIL is not recommended. Chloride [Moles/Vol] 114 mmol/L 98-107 [facility] Work Phone: Eosinophils/100 WBC (Bld) 1.2 % 0-5 [facility] Work Phone: Glucose [Mass/Vol] 95 mg/dL 74-106 [facility] Work Phone: Neutrophils (Bld) [#/Vol] 4.1 10*3/uL 2.0-7.7 [facility] Work Phone: Neutrophils/100 WBC (Bld) 63.2 % 47-70 [facility] Work Phone: Potassium [Moles/Vol] 3.9 mmol/L 3.5-5.1 [facility] Work Phone: Protein [Mass/Vol] 6.5 g/dL 6.4-8.2 [facility] Work Phone: Sodium [Moles/Vol] 144 mmol/L 136-145 [facility] Work Phone: WBC (Bld) [#/Vol] 6.5 10*3/uL 4.4-11.0 [facility] Work Phone: Blood erythrocytes count (nu mber/volume)on 12-18-2021 RBC (Bld) [#/Vol] 4.31 10*6/uL 4.2-5.4 [facility] Work Phone: Blood hemoglobin measurement (mass/volume)on 12-18-2021 Hemoglobin (Bld) [Mass/Vol] 14.0 g/dL 12.0-15.0 [facility] Work Phone: Blood lymphocytes/100 leukoc yteson 12-18-2021 Lymphocytes/100 WBC (Bld) 26.7 % 19-41 [facility] Work Phone: Blood monocytes/100 leukocyt eson 12-18-2021 Monocytes/100 WBC (Bld) 8.1 % 0-10 [facility] Work Phone: Blood platelet mean volumeon 12-18-2021 Platelet mean volume (Bld) [Entitic vol] 10.2 fL 6.2-12.0 [facility] Work Phone: [phone] Determination of erythrocyte mean corpuscular volume (MCV)on 12-18-2021 MCV (RBC) [Entitic vol] 95.6 fL 81-99 [facility] Work Phone: [phone] Hematocrit Auto (Bld) [Volum e fraction]on 12-18-2021 Hematocrit (Bld) [Volume fraction] 41.2 % 37-47 [facility] Work Phone: [phone] Laboratory - Chemistry and C hemistry - challengeon 12-18-2021 ALP [Catalytic activity/Vol] 110 U/L 45-117 [facility] Work Phone: [phone] ALT [Catalytic activity/Vol] 35 U/L 13-56 [facility] Work Phone: [phone] CO2 [Moles/Vol] 26.0 mmol/L 21.0-32.0 [facility] Work Phone: [phone] Globulin (S) [Mass/Vol] 2.8 g/dL 2.2-4.2 [facility] Work Phone: [phone] Urea nitrogen/Creatinine [Mass ratio] 17.7 mg/mg 10-20 [facility] Work Phone: [phone] Laboratory - Hematology and Cell countson 12-18-2021 Erythrocyte distribution width (RBC) [Entitic vol] 43.6 fL 35.1-43.9 [facility] Work Phone: [phone] Erythrocyte distribution width (RBC) [Ratio] 12.3 % 11.6-14.6 [facility] Work Phone: [phone] Immature granulocytes/100 WBC (Bld) 0.500 % 0.0-0.9 [facility] Work Phone: [phone] Comment on above: IG% - Immature Granu locytes (promyelocytes, myelocytes and metamyelocytes) > 1% indicates that a LEFT SHIFT is Present. MCH (RBC) [Entitic mass] 32.5 pg 27.0-32.0 [facility] Work Phone: [phone] Nucleated RBC/100 WBC (Bld) [Ratio] 0 % 0-5 [facility] Work Phone: [phone] MCHC Auto (RBC) [Mass/Vol]on 12-18-2021 MCHC (RBC) [Mass/Vol] 34.0 g/dL 32-36 [facility] Work Phone: No Panel Informationon 12-18 Estimated GFR (MDRD) Amer 87 mL/min >60 [facility] Work Phone: [phone] Comment on above: GFR Calc Estimated GFR (MDRD) Non-Af Amer 72 mL/min >60 [facility] Work Phone: [phone] Comment on above: Non- GFR Calc Hepatitis C Antibody Non-Reactive Nonreactive [facility] Work Phone: [phone] Comment on above: Non Reactive: < 0.8 Equivocal: >/= 0.8 to < 1.0 Reactive: >/= 1.0The CDC recommends that a reactive/equivocal HCV antibody result be followed up by the HCV Nucleic Acid Amplificationtest (058797) Thyroid Stimulating Hormone (TSH) 0.72 uIU/mL 0.358-3.74 [facility] Work Phone: [phone] Vitamin D 25-Hydroxy 12.0 ng/mL [facility] Work Phone: [phone] Comment on above: Vitamin D 25(OH) Sta tus Range Deficiency <20 ng/mL (50nmol/L) Insufficiency 20 - 30 ng/mL (50 - 75 nmol/L) Sufficiency 30 - 100 ng/mL (75 - 250 nmol/L) Toxicity >100 ng/mL (>250 nmol/L) Platelets bldon 12-18-2021 Platelets (Bld) [#/Vol] 203 10*3/uL 150-450 [facility] Work Phone: [phone] Serum or plasma albumin hong urement (mass/volume)on 12-18-2021 Albumin [Mass/Vol] 3.7 g/dL 3.2-5.0 [facility] Work Phone: [phone] Serum or plasma albumin/glob ulin mass ratioon 12-18-2021 Albumin/Globulin [Mass ratio] 1.3 {ratio} 0.9-2.4 [facility] Work Phone: Serum or plasma calcium hong urement (mass/volume)on 12-18-2021 Calcium [Mass/Vol] 8.5 mg/dL 8.5-10.1 [facility] Work Phone: [phone] Serum or plasma creatinine m easurement (mass/volume)on 12-18-2021 Creatinine [Mass/Vol] 0.85 mg/dL 0.55-1.02 [facility] Work Phone: [phone] Comment on above: The validity of the calculated GFR & GFRAA in patients over 70 years has not been determined. Clinical correlation is essential. Serum or plasma urea nitroge n measurement (mass/volume)on 12-18-2021 Urea nitrogen [Mass/Vol] 15 mg/dL 7-18 [facility] Work Phone: [phone] Thin prep Papanicolaou smear with manual screeningon 12-18-2021 Thin prep Papanicolaou smear with manual screening 37 U/L 15-37 [facility] Work Phone: Thin prep Papanicolaou smear with manual screening 4 5-15 [facility] Work Phone: [phone] Absolute lymphocyte counton 12-17-2021 Lymphocytes Auto (Unsp spec) [#/Vol] 1.46 10*3/uL 0.83-4.51 [facility] Work Phone: [phone] Basophil percentageon 2021 Basophils/100 WBC (Bld) 0.3 % 0-1 [facility] Work Phone: Chloride [Moles/Vol] 115 mmol/L 98-107 [facility] Work Phone: [phone] Eosinophils/100 WBC (Bld) 1.0 % 0-5 [facility] Work Phone: [phone] Glucose [Mass/Vol] 102 mg/dL 74-106 [facility] Work Phone: [phone] Comment on above: Fasting Glucose resu lt from 100 to 125 mg/dL suggests IMPAIRED HOMEOSTASIS per A.D.A. criteria. Neutrophils (Bld) [#/Vol] 6.7 10*3/uL 2.0-7.7 [facility] Work Phone: Neutrophils/100 WBC (Bld) 72.6 % 47-70 [facility] Work Phone: Potassium [Moles/Vol] 3.7 mmol/L 3.5-5.1 [facility] Work Phone: [phone] Sodium [Moles/Vol] 142 mmol/L 136-145 [facility] Work Phone: WBC (Bld) [#/Vol] 9.3 10*3/uL 4.4-11.0 [facility] Work Phone: Blood erythrocytes count (nu mber/volume)on 12-17-2021 RBC (Bld) [#/Vol] 4.64 10*6/uL 4.2-5.4 [facility]: Blood hemoglobin measurement (mass/volume)on 12-17-2021 Hemoglobin (Bld) [Mass/Vol] 14.9 g/dL 12.0-15.0 [facility] Work Phone: Blood lymphocytes/100 leukoc yteson 12-17-2021 Lymphocytes/100 WBC (Bld) 15.8 % 19-41 [facility] Work Phone: Blood monocytes/100 leukocyt eson 12-17-2021 Monocytes/100 WBC (Bld) 9.8 % 0-10 [facility] Work Phone: Blood platelet mean volumeon 12-17-2021 Platelet mean volume (Bld) [Entitic vol] 9.6 fL 6.2-12.0 [facility] Work Phone: Determination of erythrocyte mean corpuscular volume (MCV)on 12-17-2021 MCV (RBC) [Entitic vol] 95.3 fL 81-99 [facility] Work Phone: Hematocrit Auto (Bld) [Volum e fraction]on 12-17-2021 Hematocrit (Bld) [Volume fraction] 44.2 % 37-47 [facility] Work Phone: [phone] Laboratory - Chemistry and C hemistry - challengeon 12-17-2021 CO2 [Moles/Vol] 23.0 mmol/L 21.0-32.0 [facility] Work Phone: [phone] Urea nitrogen/Creatinine [Mass ratio] 18.5 mg/mg 10-20 [facility] Work Phone: [phone] Laboratory - Hematology and Cell countson 12-17-2021 Erythrocyte distribution width (RBC) [Entitic vol] 42.2 fL 35.1-43.9 [facility] Work Phone: [phone] Erythrocyte distribution width (RBC) [Ratio] 12.1 % 11.6-14.6 [facility] Work Phone: [phone] Immature granulocytes/100 WBC (Bld) 0.500 % 0.0-0.9 [facility] Work Phone: [phone] Comment on above: IG% - Immature Granu locytes (promyelocytes, myelocytes and metamyelocytes) > 1% indicates that a LEFT SHIFT is Present. MCH (RBC) [Entitic mass] 32.1 pg 27.0-32.0 [facility] Work Phone: [phone] Nucleated RBC/100 WBC (Bld) [Ratio] 0 % 0-5 [facility] Work Phone: [phone] MCHC Auto (RBC) [Mass/Vol]on 12-17-2021 MCHC (RBC) [Mass/Vol] 33.7 g/dL 32-36 [facility] Work Phone: [phone] No Panel Informationon 12-17 D-Dimer Quantitative (PE/DVT) 0.35 FEU/ug/m 0.27-0.49 [facility] Work Phone: [phone] Comment on above: NORMAL D-Dimer level (<0.50) indicates no DVT or PE. Estimated Creatinine Clearance Calc 54.11 ml/min [facility] Work Phone: [phone] Estimated GFR (MDRD) Amer 75 mL/min >60 [facility] Work Phone: Comment on above: GFR Calc Estimated GFR (MDRD) Non-Af Amer 62 mL/min >60 [facility] Work Phone: Comment on above: Non- GFR Calc Troponin I High Sensitivity 320 pg/mL 3.0-54.0 [facility] Work Phone: Comment on above: Critical Result(s) C alled at: 19:59:38 12/17/2021 by: Celia lemons TO [email or web address]. Results read back by same. Please Note: New Test Units and Gender Specific Reference Ranges. For more information see Policy Stat Procedure [place] High Sensitivity Troponin (TNIH) and attachments. Platelets bldon 12-17-2021 Platelets (Bld) [#/Vol] 192 10*3/uL 150-450 [facility] Work Phone: Serum or plasma calcium hong urement (mass/volume)on 12-17-2021 Calcium [Mass/Vol] 8.7 mg/dL 8.5-10.1 [facility] Work Phone: Serum or plasma creatinine m easurement (mass/volume)on 12-17-2021 Creatinine [Mass/Vol] 0.97 mg/dL 0.55-1.02 [facility] Work Phone: Comment on above: The validity of the calculated GFR & GFRAA in patients over 70 years has not been determined. Clinical correlation is essential. Serum or plasma urea nitroge n measurement (mass/volume)on 12-17-2021 Urea nitrogen [Mass/Vol] 18 mg/dL 7-18 [facility] Work Phone: Thin prep Papanicolaou smear with manual screeningon 12-17-2021 Thin prep Papanicolaou smear with manual screening 4 5-15 [facility] Work Phone: STRESS TEST EXERCISEon 03-03 STRESS TEST EXERCISE NAME : SHWETA IYER PID : [id number] : 1960 Gender : Female Race : ORD : [id number] Procedure Date : Mar 03 2019 10:37:16 Edit Date : Mar 06 2019 09:43:32 Protocol Name : JACKY Time In Exercise Phase : 00:09:33 Max. Systolic BP : 162 mmHg Max Diastolic BP : 84 mmHg Max Heart Rate : 160 BPM Max Predicted Heart Rate : 161 BPM Recovery ECG Response (OLD) : Reason For Termination : Target Heart Rate Achieved Test Reason : Chest Pain Location :RSL Overread By : LESLEY TANNER M.D. Edited By : Anita Maguire Referred By : ALONSO APONTE III [facility] Telephone ([facility]) SHWETA IYER ([id number]) 1960 F Date Time Provider Department 03/02/19 BONITA CAR (RN) [facility] During your visit today, we recorded the following information about you: Bonita Car RN, RN 03/02/2019 12:29 PM Signed Left message regarding reminder for stress test tomorrow and given instructions. Allergies As of Date: 03/02/2019 Noted Allergy Reaction Negram [Other] 07/27/2002 Date Reviewed: 02/24/2019 Reviewed by: Cece Hays - Fully Assessed Reason for Visit: Reminder Call [[id number]] Prescriptions as of 03/02/2019 Sig: PERFLUTREN LIPID MICROSPHERES* Inject 1.3 mL intravenously a* ASPIRIN 81 MG TABLET,DELAYED * Take 1 tablet by mouth once d* FLUCONAZOLE 150 MG TABLET Take 1 tablet today and repea* Patient not taking: Reported on 12/09/2018 CALCIUM 500 WITH D 500 MG (1,* As Directed PRED FORTE 1 % EYE DROPS,SUSP* MULTIVITAMIN TABLET Take one(1) tablet daily. Problem List As Of Date 03/02/2019 Noted Resolved CORNEAL OPACITY NOS [H17.9] INVALID FOR* TOBACCO USE DISORDER [F17.200] INVALID FOR* HYPERLIPIDEMIA NEC/NOS [E78.5] INVALID FOR* Condyloma acuminatum [A63.0] INVALID FOR* Encounter Status:Closed by BONITA CAR on 03/02/19 [facility] Office Visit: UC: Congestion on 01-08-2017 Alcoholism counseling (procedure) no Invalid Interpretation Code [facility] Work Phone: Documentation of current medications (procedure) Done Invalid Interpretation Code [facility] Work Phone: Fall risk assessment No Invalid Interpretation Code [facility] Work Phone: Smoking cessation education (procedure) yes Invalid Interpretation Code [facility] Work Phone: Tobacco use HS Current every day smoker Invalid Interpretation Code [facility] Work Phone: Vital Signs Date Time Vital Sign Value Performing Clinician [facility] queen 02-22-2025 08:22-0400 Body height 165.1 cm Delphine Winters [facility] Work Phone: [phone] [place] [address] 02-22-2025 08:22-0400 Body mass index (BMI) [Ratio] 30.7 kg/m2 Delphine Winters [facility] Work Phone: [phone] [place] [address] 02-22-2025 08:22-0400 Body weight 83.91 kg Delphine Winters [facility] Work Phone: [phone] [place] [address] 02-22-2025 08:22-0400 Diastolic blood pressure 97 mm[Hg] Delphine Winters [facility] Work Phone: [phone] [place] [address] 02-22-2025 08:22-0400 Heart rate 77 /min Delphine Winters [facility] Work Phone: [phone] [place] [address] 02-22-2025 08:22-0400 Respiratory rate 18 /min Delphine Winters [facility] Work Phone: [phone] [place] [address] 02-22-2025 08:22-0400 Systolic blood pressure 137 mm[Hg] Delphine Winters [facility] Work Phone: [phone] [address] 11-22-2024 07:48-0400 Body mass index (BMI) [Ratio] 30.7 kg/m2 Delphine Winters [facility] Work Phone: [facility] 11-22-2024 07:48-0400 Body weight 83.91 kg Delphine Winters [facility] Work Phone: [phone] [place] [address] 11-22-2024 07:48-0400 Diastolic blood pressure 88 mm[Hg] Delphine Winters [facility] Work Phone: [phone] [place] [address] 11-22-2024 07:48-0400 Heart rate 81 /min Delphinesydni Winters [facility] Work Phone: [phone] [place] [address] 11-22-2024 07:48-0400 Respiratory rate 18 /min Delphine Winters [facility] Work Phone: [phone] [place] [address] 11-22-2024 07:48-0400 SaO2% (BldA) [Mass fraction] 97 % Delphine Winters [facility] Work Phone: [phone] [place] [address] 11-22-2024 07:48-0400 Systolic blood pressure 138 mm[Hg] Delphine Winters [facility] Work Phone: [phone] [place] [address] 01-14-2023 17:48-0400 Body temperature 97.8 [degF] Dr. Colin Gipson Work Phone: [facility] 01-14-2023 17:48-0400 Diastolic blood pressure 95 mm[Hg] Dr. Colin Gipson Work Phone: [facility] 01-14-2023 17:48-0400 Heart rate 88 /min Dr. Colin Gipson Work Phone: [facility] 01-14-2023 17:48-0400 Respiratory rate 16 /min Dr. Colin Gipson Work Phone: [facility] 01-14-2023 17:48-0400 SaO2% (BldA) [Mass fraction] 98 % Dr. Colin Gipson Work Phone: [facility] 01-14-2023 17:48-0400 Systolic blood pressure 155 mm[Hg] Dr. Colin Gipson Work Phone: [facility] 01-14-2023 10:32-0400 Body height 165.[address] Colin Gipson Work Phone: [phone] [place] [address] 01-14-2023 10:32-0400 Body weight 81.[address] Colin Gipson Work Phone: [facility] 01-13-2023 07:07-0400 Body mass index (BMI) [Ratio] 29.9 kg/m2 Dr. Colin Gipson Work Phone: [phone] [place] [address] 12-21-2022 16:44-0400 Diastolic blood pressure 85 mm[Hg] Dr. Colin Gipson Work Phone: [phone] [place] [address] 12-21-2022 16:44-0400 Systolic blood pressure 130 mm[Hg] Dr. Colin Gipson Work Phone: [phone] [place] [address] 12-21-2022 08:39-0400 Body mass index (BMI) [Ratio] 29.9 kg/m2 Dr. Colin Gipson Work Phone: [phone] [place] [address] 12-21-2022 08:39-0400 Body weight 81.[address] Colin Gipson Work Phone: [phone] [place] [address] 12-21-2022 08:39-0400 Heart rate 73 /min Dr. Colin Gipson Work Phone: [phone] [place] [address] 12-21-2022 08:39-0400 Respiratory rate 18 /min Dr. Colin Gipson Work Phone: [phone] [place] [address] 12-21-2022 08:39-0400 SaO2% (BldA) [Mass fraction] 99 % Dr. Colin Gipson Work Phone: [phone] [place] [address] 12-12-2022 12:07-0400 Diastolic blood pressure 81 mm[Hg] [facility] 12-12-2022 12:07-0400 Heart rate 99 /min [facility] 12-12-2022 12:07-0400 Respiratory rate 17 /min [facility] 12-12-2022 12:07-0400 SaO2% (BldA) [Mass fraction] 99 % [facility] 12-12-2022 12:07-0400 Systolic blood pressure 131 mm[Hg] [facility] 12-12-2022 10:33-0400 Inhaled oxygen flow rate 2 L/min [facility] 12-12-2022 10:220400 Body height 165.1 cm [facility] 12-12-2022 10:220400 Body mass index (BMI) [Ratio] 30.2 kg/m2 [facility] 12-12-2022 10:220400 Body temperature 98 [degF] [facility] 12-12-2022 10:220400 Body weight 82.5 kg [facility] 02-13-2022 14:270400 Body height 165.[address] Colin Gipson Work Phone: [facility] Work Phone: 02-13-2022 14:27-0400 Body mass index (BMI) [Ratio] 27.9 kg/m2 Dr. Colin Gipson Work Phone: [facility] Work Phone: 02-13-2022 14:27-0400 Body weight 76.[address] Colin Gipson Work Phone: [facility] Work Phone: 02-13-2022 14:27-0400 Diastolic blood pressure 93 mm[Hg] Dr. Colin Gipson Work Phone: [facility] Work Phone: 02-13-2022 14:27-0400 Heart rate 64 /min Dr. Colin Gipson Work Phone: [facility] Work Phone: 02-13-2022 14:27-0400 Respiratory rate 16 /min Dr. Colin Gipson Work Phone: [facility] Work Phone: 02-13-2022 14:27-0400 SaO2% (BldA) [Mass fraction] 97 % Dr. Colin Gipson Work Phone: [facility] Work Phone: 02-13-2022 14:27-0400 Systolic blood pressure 153 mm[Hg] Dr. Colin Gipson Work Phone: [facility] Work Phone: 12-17-2021 20:41-0400 Diastolic blood pressure 82 mm[Hg] [facility] Work Phone: 12-17-2021 20:41-0400 Heart rate 79 /min [facility] Work Phone: 12-17-2021 20:41-0400 Respiratory rate 24 /min [facility] Work Phone: 12-17-2021 20:41-0400 SaO2% (BldA) [Mass fraction] 97 % [facility] Work Phone: 12-17-2021 20:41-0400 Systolic blood pressure 131 mm[Hg] [facility] Work Phone: 12-17-2021 18:40-0400 Body height 165.1 cm [facility] Work Phone: 12-17-2021 18:40-0400 Body mass index (BMI) [Ratio] 29.7 kg/m2 [facility] Work Phone: 12-17-2021 18:40-0400 Body temperature 98.1 [degF] [facility] Work Phone: 12-17-2021 18:40-0400 Body weight 81 kg [facility] Work Phone: 01-08-2017 11:50-0400 BMI (Body Mass Index) 29.18 kg/m2 Cristi U[facility] Work Phone: 01-08-2017 11:50-0400 Body Temperature 99.8 [degF] [facility] Work Phone: 01-08-2017 11:50-0400 BP Diastolic 11 mm[Hg] Cristi GUNN [facility] Work Phone: 01-08-2017 11:50-0400 BP Systolic 150 mm[Hg] Cristi GUNN [facility] Work Phone: 01-08-2017 11:50-0400 Height 165.1 cm Cristi GUNN [facility] Work Phone: 01-08-2017 11:50-0400 Pulse (Heart Rate) 78 /min Cristi GUNN [facility] Work Phone: 01-08-2017 11:50-0400 Pulse Oximetry 98 % Cristi GUNN [facility] Work Phone: 01-08-2017 11:50-0400 Respiratory Rate 16 /min Cristi GUNN [facility] Work Phone: 01-08-2017 11:50-0400 Weight 79.56 kg Cristi GUNN [facility] Work Phone: Encounters Encounter Date Encounter Type Care Provider Facility Start: 02-22-2025 End: 02-22-2025 Patient encounter procedure Terrie GUNN -[facility] Work Phone: Start: 02-22-2025 End: 02-22-2025 ambulatory Delphine Winters [facility] Work Phone: [facility] Work Phone: Start: 11-22-2024 End: 11-22-2024 Patient encounter procedure Terrie GUNN -[facility] Work Phone: Start: 11-22-2024 End: 11-22-2024 ambulatory Delphine Winters [facility] Facility:[facility] Start: 11-20-2024 End: 11-20-2024 ambulatory Delphine Winters [facility] Work Phone: [facility] Work Phone: Start: 11-20-2024 End: 11-20-2024 Patient encounter procedure Gemini Guzmán [facility] -[facility] Work Phone: Start: 11-20-2024 End: 11[facility] Start: 11-14-2024 End: 11-14-2024 ambulatory [facility] Work Phone: [facility] Work Phone: Start: 11-14-2024 End: 11-14-2024 Patient encounter procedure [facility] Delphineveda Winters [facility] -Laboratory, [facility] Start: 11-14-2024 End: 11-14-2024 ambulatory [facility] Facility:[facility] Start: 01-20-2023 End: 01-20-[address] Colin Gipson Work Phone: [facility] Work Phone: Start: 01-20-2023 End: 01-20-[address] Colin Gipson Work Phone: [facility]-Laboratory, Phy Office [employer] War Start: 01-14-2023 End: 01-14-2023 Admission to same day surgery center Dr. 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 Colin Gipson Work Phone: [facility]-Laboratory Start: 12-21-2022 End: 12-21-[address] Colin Gipson Work Phone: [facility] Start: 12-12-2022 End: 12-12-2022 Emergency department patient visit [facility]-Emergency Department Start: 03-23-2022 Non-patient / Non-visit Dr. Diaz Gipson Work Phone: [facility] Start: 03-23-2022 End: 03-23-[address] Colin Gipson Work Phone: [facility]-Cardiovascular Services Start: 02-19-[address] Colin harrison Work Phone: [facility] Start: 02-16-2022 Non-patient / Non-visit Dr. Diaz Gipson Work Phone: [facility] Start: 02-13-2022 End: 02-13-[address] Colin Gipson Work Phone: [facility] Start: 02-05-2022 Non-patient / Non-visit Dr. Diaz Gipson Work Phone: [facility] [place] [facility] Start: 01-13-2022 End: 01-13-[address] Colin Gipson Work Phone: [facility]-Cat Scan, [facility] Start: 12-18-2021 End: 12-18-2021 Patient encounter procedure [facility]-Laboratory, Phy Office 3rd Flr Start: 12-17-2021 End: 12-17-2021 Emergency department patient visit [facility]-Emergency Department Procedures Date Procedure Procedure Detail Performing Clinician Start: 11-20-2024 Screening mammography Cruzito CAIN Work Phone: Start: 01-13-[address] Colin harrison Work Phone: Start: 12-17-2021 Plain chest X-ray Plan of Treatment Date Care Activity Detail Author Start: 01-14-2023 Notification of physician [facility] Start: 01-14-2023 Patient discharge [facility] Start: 01-14-2023 Provision of activity privileges [facility] Start: 01-14-2023 Scheduling [facility] Start: 01-14-2023 Taking patient vital signs [facility] Start: 01-14-2023 Vascular disease risk assessment [facility] Start: 01-14-2023 [facility] Start: 01-14-2023 Admission procedure [facility] Start: 12-17-2021 [facility] Work Phone: Basic metabolic 2008 panel with ionized calcium - Serum or Plasma [facility] Cardiac electrophysiology [facility] Patient Education ED Understandi ng Supraventricular Tachycardia (SVT) [facility] Work Phone: Patient referral [facility] Work Phone: [facility] Work Phone: Payers Date Payer Category Payer Private Health Insurance [id number] [id number] Self-pay [id number] Unknown SELF PAY INSURANCE [id number] Unknown [id number] Unknown [id number] Unknown [id number] Unknown [id number] Unknown [id number] Unknown [id number] Social History Date Type Detail Facility Start: 12-17-2021 End: 01-14-2023 Tobacco smoking status NHIS Unknown if ever smoked [facility] Start: 1960 Sex Assigned At Female [facility] Start: 01-14-2023 Tobacco smoking stat us NHIS Smokes tobacco daily (finding) [facility] Start: 11-27-2024 End: 11-30-2024 Sex Female (finding) [facility] Mental Status Date Assessment Result Facility 12-12-2022 Cognitive function Voice/Name [facility] Work Phone: 12-17-2021 Cognitive function Awake;Alert;A ppropriate;Fol lows Commands [facility] Work Phone: Evaluation note 11-22-2024 Note Date & Type Note Facility 11-22-2024 Evaluation note Diagnosis Onset Date Resolution Essential hypertension acute [facility] 2024 1:37pm SVT (supraventricular tachycardia) acute November 22, 2024 1:37pm [facility] Work Phone: Evaluation note 11-22-2024 Note Date & Type Note Facility 11-22-2024 Evaluation note Diagnosis Onset Date Resolution Essential hypertension acute [facility] 2024 1:37pm SVT (supraventricular tachycardia) acute November 22, 2024 1:37pm Essential hypertension acute [facility] 2024 8:06am SVT (supraventricular tachycardia) acute February 22, 2025 8:06am [facility] Work Phone: Progress note 07-29-2021 Note Date & Type Note Facility 07-29-2021 Note HNO ID: [id number] Author: Alok Barlow Population Health Navigator Service: ? Author Type: ? Type: Progress Notes Filed: 07/29/2021 1:09 PM Note Text: POPULATION HEALTH NAVIGATION OUTREACH Action/FYI I left a voice message re: pcp No care everywhere Contact made with patient or family member? NO Pt identified by name and : NO Outreach Outcome/Action Unable to reach patient: Left message Reason for Outreach Attribution: Provider Off-boarding Payer: Payor: PRAMOD / Plan: BLUE ACCESS PPO / Product Type: PPO / Care Gap Reviewed:: Reminder: Reminder note to check Health Maintenance for items below Health Maintenance items due: COVID-19 VACCINE(1) Never done HIV SCREENING Never done SHINGRIX VACCINE(1 of 2) Never done MAMMOGRAM due on 02/25/2020 PAP TESTING due on 03/18/2020 HPV TESTING due on 03/18/2020 DEPRESSION SCREENING due on 04/18/2020 INFLUENZA(1) Never done Advanced Directives Completed: Have you ever planned for future healthcare decisions with a power of managing attorney, living will, or advance directives? No. Please bring a copy to your next appointment or email to Referrals: N/A Message Sent to Practice: NO Navigation Signature: Alok Barlow Population Health Navigator July 29, 2021 1:09 PM [facility] Clinical Note 07-29-2021 Note Date & Type Note Facility 07-29-2021 Note Patient Outreach (NIELS TNAV) SHWETA IYER ([id number]) 1960 F Date Time Provider Department 07/29/21 ALOK BARLOW During your visit today, we recorded the following information about you: Alok Barlow Population Health Navigator 07/29/2021 1:09 PM Signed POPULATION HEALTH NAVIGATION OUTREACH Action/FYI I left a voice message re: pcp No care everywhere Contact made with patient or family member? NO Pt identified by name and : NO Outreach Outcome/Action Unable to reach patient: Left message Reason for Outreach Attribution: Provider Off-boarding Payer: Payor: PRAMOD / Plan: BLUE ACCESS PPO / Product Type: PPO / Care Gap Reviewed:: Reminder: Reminder note to check Health Maintenance for items below Health Maintenance items due: COVID-19 VACCINE(1) Never done HIV SCREENING Never done SHINGRIX VACCINE(1 of 2) Never done MAMMOGRAM due on 02/25/2020 PAP TESTING due on 03/18/2020 HPV TESTING due on 03/18/2020 DEPRESSION SCREENING due on 04/18/2020 INFLUENZA(1) Never done Advanced Directives Completed: Have you ever planned for future healthcare decisions with a power of managing attorney, living will, or advance directives? No. Please bring a copy to your next appointment or email to Referrals: N/A Message Sent to Practice: NO Navigation Signature: Alok Barlow Population Health Navigator July 29, 2021 1:09 PM Allergies As of Date: 07/29/2021 Noted Allergy Reaction Negram [Other] 07/27/2002 Date Reviewed: 04/21/2019 Reviewed by: Yeimy Vizcaino (Rn) Jori, RN - Fully Assessed Reason for Visit: Population Health Navigation Outreach [3910] Cmt: Offboarding Prescriptions as of 07/29/2021 - calcium carbonate/vitamin d3(CALCIUM 500 WITH D 500 MG (1,250 MG)-400 UNIT TAB) As Directed - PRED FORTE 1 % EYE DROPS - MULTIVITAMIN TAB Take one(1) tablet daily. Problem List As Of Date 07/29/2021 Noted Resolved CORNEAL OPACITY NOS [H17.9] 01/07/2009 TOBACCO USE DISORDER [F17.200] 01/07/2009 HYPERLIPIDEMIA NEC/NOS [E78.5] 01/07/2009 Condyloma acuminatum [A63.0] 03/18/2015 Encounter Status:Closed by [facility] [facility] NAVIGATORALOK on 07/29/21 [facility] Clinical Note 04-04-2021 Note Date & Type Note Facility 04-04-2021 Note Patient Outreach (IN TMMN) SHWETA IYER ([id number]) 1960 F Date Time Provider Department 04/04/21 ALONSO APONTE III During your visit today, we recorded the following information about you: Allergies As of Date: 04/04/2021 Noted Allergy Reaction Negram [Other] 07/27/2002 Date Reviewed: 04/21/2019 Reviewed by: Yeimy Vizcaino (Rn) MARLENY Hsieh - Fully Assessed Visit Diagnosis:Encounter for screening mammogram for breast cancer [Z12.31] Order(s):[facility] SCREENING [0561377] Order #: [id number] FUTURE Prescriptions as of 04/07/2021 - calcium carbonate/vitamin d3(CALCIUM 500 WITH D 500 MG (1,250 MG)-400 UNIT TAB) As Directed - PRED FORTE 1 % EYE DROPS - MULTIVITAMIN TAB Take one(1) tablet daily. Problem List As Of Date 04/04/2021 Noted Resolved CORNEAL OPACITY NOS [H17.9] 01/07/2009 TOBACCO USE DISORDER [F17.200] 01/07/2009 HYPERLIPIDEMIA NEC/NOS [E78.5] 01/07/2009 Condyloma acuminatum [A63.0] 03/18/2015 Encounter Status:Closed by EPIC, PRODUSER on 04/07/21 [facility] Evaluation note Note Date & Type Note Facility Evaluation note No assessment information availa ble [facility] Work Phone: Evaluation note Note Date & Type Note Facility Evaluation note Diagnosis Onset Date SVT (supraventricular tachycardia) acute [facility] Work Phone: Evaluation note Note Date & Type Note Facility Evaluation note Diagnosis Onset Date Essential hypertension acute SVT (supraventricular tachycardia) acute [facility] Work Phone: Reason for referral (narrative) Note Date & Type Note Facility Reason for referral (narrative) No reason for referral information available [facility] Work Phone: Summary Purpose Family History No Family History Records Found Relationship Condition Age at Onset Recorded Date/T amanda father Malignant neoplasm Unknown Cardiac disease Unknown mother Hypertension Unknown Advance Directives No Advanced Directives Records Found Advance Directive Response Recorded Date/ Time Living Will No December 17, 2021 6:59pm Power of Design Engineer No December 17 6:59pm Advance Directive Response Recorded Date/ Time Living Will No December 12, 2022 10:28am Power of Design Engineer No December 12 10:28am Advance Directive Response Recorded Date/ Time Advance Directives No January 14, 2023 10:32am Living Will No January 14, 2023 10 :32am Power of Design Engineer No January 14, 2023 10:32am Advance Directive Response Recorded Date/ Time Advance Directives No January 14, 2023 10:32am Chief Complaint and Reason for Visit Chief Complaint chest pain Chief Complaint chest pain NICOTINE DEPENDENCE Amb Documentation SVT,PALPS (ROSA) HOLTER SVT ARRYHTHMIA Reason for Visit SVT (supraventricula r tachycardia) Chief Complaint chest pain S/P [facility] ED 4-1 SVT RATE 200 E ORDERS SVT PRO Reason for Visit Essential hypertensi on SVT (supraventricular tachycardia) Chief Complaint Admit Date SCREENING November 20, 2024 1:5 4pm OVERDUE FOR OV/LAST SEEN 01/03 1:37pm Reason for Visit Admit Date Essential hypertension November 22, 2024 1:37pm SVT (supraventricular tachycardia) November 22, 2024 1:37pm Chief Complaint Admit Date SCREENING November 20, 2024 1:5 4pm OVERDUE FOR OV/LAST SEEN 01/03 1:37pm 3 M FU February 22, 2025 8:06 am Reason for Visit Admit Date Essential hypertension November 22, 2024 1:37pm SVT (supraventricular tachycardia) November 22, 2024 1:37pm Essential hypertension February 22, 2025 8 :06am SVT (supraventricular tachycardia) February 22, 2025 8:06am Additional Source Comments INFORMATION SOURCE (unrecogn ized section and content) DATE CREATED AUTHOR 03/08/2019 [facility] DATE CREATED AUTHOR AUTHOR'S ORGANIZ ATION 11/02/2021 [facility] DATE CREATED AUTHOR AUTHOR'S ORGANIZ ATION 02/24/2025 [facility] Goals (unrecognized section and content) Goals may be documented in a n alternate sectionGoals may be documented in an alternate sectionGoals may be documented in an alternate sectionGoals may be documented in an alternate sectionGoals may be documented in an alternate sectionGoals may be documented in an alternate sectionGoals may be documented in an alternate sectionGoals may be documented in an alternate section Care Teams (unrecognized sec tion and content) Team Status: Active Member Role Status Dates Dr. Alonso Aponte III, Family Provider Active Dr. Colin Gipson MD Primary Care Provider Active Team Status: Inactive Member Role Status Dates Dr. Colin Gipson MD Primary Care Provider Active Dr. Tameka Walker DO Emergency Provider Active Team Status: Inactive Member Role Status Dates Dr. Colin Gipson MD Primary Care Provider, Referring Provider Active Terrie Davey PA, PA Attending Provider Active Team Status: Inactive Member Role Status Dates Dr. Colin Gipson MD Primary Care Provider Active Dr. Tameka Walker DO Attending Provider, Emergency Pro vider Active Team Status: Inactive Member Role Status Dates Dr. Colin Gipson MD Primary Care Provider Active Dr. Evans Moctezuma MD Attending Provider, Referring Pro vider Active Team Status: Inactive Member Role Status Dates Dr. Colin Gipson MD Primary Care Provider Active Terrie Davey PA, PA Attending Provider, Referr ing Provider Active Team Status: Inactive Member Role Status Dates Dr. Colin Gipson MD Primary Care Provider, Attending Provider Active Team Status: Active Member Role Status Dates Delphineveda Winters VSC, VP CARDIOVASCULAR-C Primary Care Provider Activ e Team Status: Inactive Member Role Status Dates Delphineveda Winters VSC, VP CARDIOVASCULAR-C Primary Care Provider Activ e Start: November 14, 2024 End: November 14, 2024 Delphine Winters VSC, VP CARDIOVASCULAR-C Attending Provider Active Start: November 14, 2024 End: November 14, 2024 Team Status: Active Member Role Status Dates Delphine Singh VSOleksandr, VP CARDIOVASCULAR-C Primary Care Provider Activ e Start: November 20, 2024 Gemini Guzmán VP CARDIOVASCULAR-C Attending Provider Active Start: November 20, 2024 Team Status: Inactive Member Role Status Dates Delphine Singh VSC, VP CARDIOVASCULAR-C Primary Care Provider Activ e Start: November 22, 2024 End: November 22, 2024 Delphine Winters VSOleksandr, VP CARDIOVASCULAR-C Referring Provider Active Start: November 22, 2024 End: November 22, 2024 Terrie GUNN, PA Attending Provider Active Start: November 22, 2024 End: November 22, 2024 Team Status: Inactive Member Role Status Dates Delphine Winters JIMBO, VP CARDIOVASCULAR-C Primary Care Provider Activ e Start: November 20, 2024 End: November 20, 2024 Gemini Guzmán VP CARDIOVASCULAR-C Attending Provider Active Start: November 20, 2024 End: November 20, 2024 Team Status: Active Member Role Status Dates Gemini Guzmán VP CARDIOVASCULAR-C Primary Care Provider Active Team Status: Inactive Member Role Status Dates Delphine CHOI, VP CARDIOVASCULAR-C Referring Provider Active Start: February 22, 2025 End: February 22, 2025 Terrie GUNN, PA Attending Provider Active Start: February 22, 2025 End: February 22, 2025 Gemini Guzmán NP-C Primary Care Provider Active Start: February 22, 2025 End: February 22, 2025 FOR RECORDS PERTAINING TO PATIENTS WHO ARE OR HAVE BEEN ENROLLED IN A CHEMICAL DEPENDENCY/SUBSTANCEABUSE PROGRAM, SOME INFORMATION MAY BE OMITTED. This clinical summary was aggregated from multiple sources. Caution should be exercised in using it in the provision of clinical care. This summary normalizes information from multiple sources, and as a consequence, information in this document may materially change the coding, format and clinical context of patient data. In addition, data may be omitted in some cases. CLINICAL DECISIONS SHOULD BE BASED ON THE PRIMARY CLINICAL RECORDS. [facility] provides no warranty or guarantee of the accuracy or completeness of information in this document.
== END | disposition home or self-care (01) ==
LOC: LAB 10:15
PROVIDERS: PCP Nurse Practitioner Family; Referring Provider Physician Assistant Medical; Visit Provider Physician Assistant Medical
DX: I10 Essential (primary) hypertension (principal)
CPT/HCPCS: 36415; 80048